=== PATIENT | female | born 1975 | race Hispanic/Latino ===

== ENCOUNTER 2021-10-26 23:22 | Inpatient (IN) | payer OTHER ==
[~2021-10-26] VITALS: Ht 168.9 cm; Wt 55.5 kg
[2021-10-26 23:49] VITALS: BP 154/98
--- NOTE | 2021-10-27 00:05 | ER.PDOC ---
General Chief Complaint: Suicide Attempt Stated Complaint: SI Time seen by MD: 23:50 Source: patient Exam Limitations: no limitations History of Present Illness Initial Comments Patient is a 45-year-old female with a past medical history of an unspecified autoimmune disease who comes in with her for suicidal ideation. Patient states that over the past week or so she has started having suicidal ideation and have made a plan to set her affairs in order and use her guns to shoot herself. Patient's does state that she does have access to guns at home. Patient states that she is voluntary and she does want help for this and has never sought help for anything like this before. Patient states that she is just really tired and she is sick and fighting against his autoimmune disease she states that interactions with friends at work are making her symptoms worse because she thinks that they are adult bullies and nothing seems to make it better anymore. Patient denies any other physical complaints or symptoms. Patient denies any homicidal ideation or AVH.Patient does endorse some associated mild anxiety along with depression. Past Medical History Medical History: thyroid disease Surgical History: hysterectomy, tonsillectomy Family History Significant Family History: no pertinent family hx Social History Smoking: non-smoker Alcohol Use: rarely Drug Use: none Reviewed Nursing Reviewed: Vital Signs, Abn. Noted, Nursing Assessment Review of Systems Constitutional: denies no symptoms reported, denies see HPI, denies chills, denies diaphoresis, denies fever, denies malaise, denies weakness, denies other EENTM: denies no symptoms reported, denies see HPI, denies eye pain, denies blurred vision, denies tearing, denies double vision, denies ear pain, denies ear discharge, denies nose pain, denies nose congestion, denies throat pain, denies throat swelling, denies mouth pain, denies mouth swelling, denies other Respiratory: denies no symptoms reported, denies see HPI, denies cough, denies orthopnea, denies shortness of breath, denies stridor, denies wheezing, denies o ther Cardiovascular: denies no symptoms reported, denies see HPI, denies chest pain, denies edema, denies palpitations, denies syncope, denies other Gastrointestinal: denies no symptoms reported, denies see HPI, denies abdominal pain, denies constipation, denies diarrhea, denies nausea, denies vomiting, denies other Genitourinary: denies no symptoms reported, denies see HPI, denies discharge, denies dysuria, denies frequency, denies hematuria, denies pain, denies other Musculoskeletal: denies no symptoms reported, denies see HPI, denies back pain, denies gout, denies joint pain, denies joint swelling, denies muscle pain, denies muscle stiffness, denies neck pain, denies other Skin: denies no symptoms reported, denies see HPI, denies change in color, denies change in hair/nails, denies dryness, denies lesions, denies lumps, denies rash, denies other Psychiatric/Neurological: anxiety, depressed, other Physical Exam General Appearance: Anxious EENT: No nystagmus, PERRLA, EOM's intact, NML ENT inspection, Pharynx nml, NML gag reflex Neck: Non-Tender, Full Range of Motion, Supple, Normal Inspection Respiratory: chest non-tender, lungs clear, normal breath sounds, no respiratory distress, no accessory muscle use Cardiovascular: Normal Peripheral Pulses, Regular Rate, Rhythm, No Edema, No Gallop, No JVD, No Murmur Gastrointestinal: Normal Bowel Sounds, No Organomegaly, No Pulsatile Mass, Non Tender, Soft Extremities: Non-Tender, Normal Range of Motion, No Evidence of Trauma, No Edema Neurological/Psychiatric: Anxious, Other (Very tearful on exam -suicidal ideation) Appearance/Memory/Insight: Appropriate Appearance Behavior/Eye Contact/Speech: Cooperative Thoughts/Hallucinations: No Apparent Hallucination Skin: Normal Color Results/Orders Results/Orders Orders - MORENITA RAMIREZ MD Cbc With Auto Diff (10/26/21 23:56) Comprehensive Metabolic Panel (10/26/21 23:56) Urinalysis (10/26/21 23:56) Thyroid Stimulating Horm(Ml) (10/26/21 23:56) Drug Scrn Med W Confirmation (10/26/21 23:56) Vitamin D Total 25 Hydroxy (10/26/21 23:56) RPR (10/26/21 23:56) Hemoglobin A1c(Ml) (10/26/21 23:56) Lipid Panel(Ml) (10/26/21 23:56) Creatine Kinase (10/26/21 23:56) Hcg Qualitative Serum (10/26/21 23:56) Alcohol(Ml) (10/26/21 23:56) Acetaminophen(Ml) (10/26/21 23:56) Salicylate(Ml) (10/26/21 23:56) Ekg-Routine (10/26/21 23:56) Covid19 Antigen Roxi Nikky (10/27/21 00:05) Free T4(Ml) (10/27/21 01:19) Vital Signs Date Time Temp Pulse Resp B/P (MAP) Pulse Ox O2 Delivery O2 Flow Rate FiO2 10/26/21 23:49 98.1 88 16 154/98 (116) 100 Room Air* 0 21 10/26/21 23:49 98.1 88 16 10/26/21 23:49 98.1 88 16 100 Laboratory Tests Test 10/27/21 00:12 10/27/21 01:20 White Blood Count 6.1 10^3/uL (4.5-11.0) Red Blood Count 5.03 10^6/uL (4.00-5.20) Hemoglobin 14.5 g/dL (12.0-15.0) Hematocrit 46.7 % (36.0-46.0) H Mean Corpuscular Volume 92.8 fL (78-100) Mean Corpuscular Hemoglobin 28.8 pg (26-34) Mean Corpuscular Hemoglobin Concent 31.0 g/dL (33-36.5) L Red Cell Distribution Width 13.1 % (11.5-14.5) Platelet Count 331 10^3/uL (150-400) Mean Platelet Volume 8.8 fL (7.8-11.0) Neutrophils (%) (Auto) 42.3 % (41.0-85.0) Lymphocytes (%) (Auto) 46.7 % (24.0-44.0) H Monocytes (%) (Auto) 8.5 % (5.0-12.0) Neutrophils # (Auto) 2.6 10^3/uL (1.8-7.7) Lymphocytes # (Auto) 2.86 10^3/uL1 (1.0-4.8) Monocytes # (Auto) 0.5 10^3/uL (0.3-0.8) Absolute Immature Granulocyte (auto 0.01 10^3 u/L (0-2) Absolute Eosinophils (auto) 0.1 10^3/uL (0.0-0.2) Immature Granulocytes % 0.20 % (0.00-0.50) Eosinophils % 1.3 % (0.0-5.0) Basophils % 1.0 % (0.0-0.2) H Basophils # 0.1 10^3/uL (0.0-0.1) Sodium Level 139 mmol/L (132-145) Potassium Level 3.5 mmol/L (3.6-5.2) L Chloride Level 102.0 mmol/L (96-109) Carbon Dioxide Level 26.5 mmol/L (20.0-32) Anion Gap 14.0 Blood Urea Nitrogen 14 mg/dL (7-18) Creatinine 1.01 mg/dL (0.59-1.40) Estimated GFR () 71.1 (>/=60) Est GFR (CKD-EPI)(Non-Afr Mongolian) 58.8 (>/=60) BUN/Creatinine Ratio 13.0 Glucose Level 115 mg/dL (70-110) H Hemoglobin A1c 5.3 % (0-5.7) Calcium Level 9.5 mg/dL (8.4-10.5) Total Bilirubin 0.5 mg/dL (0.2-1.0) Aspartate Amino Transferase (AST) 16 U/L (0-35) Alanine Aminotransferase (ALT) 22 U/L (12-78) Alkaline Phosphatase 100 U/L (50-136) Total Creatine Kinase 73 U/L (26-192) Total Protein 7.7 g/dL (6.4-8.2) Albumin 4.2 g/dL (3.4-5.0) Globulin 3.5 Albumin/Globulin Ratio 1.200 Triglycerides Level 66 mg/dL (20-170) Cholesterol Level 313 mg/dL (120-240) H LDL Cholesterol, Calculated 197.8 VLDL Cholesterol, Calculated 13.2 HDL Cholesterol 102 mg/dL (32-96) H Cholesterol Ratio (LDL/HDL) 1.9 Cholesterol/HDL Ratio 3.185001 Vitamin D 25-Hydroxy 63.7 ng/mL (30.0-100.0) Thyroid Stimulating Hormone (TSH) 6.352 mIU/mL (0.358-3.740) Free Thyroxine 1.38 ng/dL (0.76-1.46) Serum HCG, Qualitative NEGATIVE (NEGATIVE) Salicylates Level < 2.8 mg/dL (2.8-20.0) L Acetaminophen Level < 2 ug/mL (10-30) L Serum Alcohol < 3 mg/dL (0-50) Urine Collection Type RANDOM Urine Color YELLOW Urine Appearance CLEAR Urine Bilirubin NEGATIVE (NEGATIVE) Urine Ketones NEGATIVE (NEGATIVE) Urine Specific [place] 1.015 (1.005-1.030) Urine pH 5.5 (4.5-8.0) Urine Protein NEGATIVE (NEGATIVE) Urine Urobilinogen 0.2 E.U./dL (0.2) Urine Nitrate NEGATIVE (NEGATIVE) Urine Leukocyte Esterase NEGATIVE (NEGATIVE) Urine Glucose (Auto)(UA) NEGATIVE (NEGATIVE) Urine Blood NEGATIVE (NEGATIVE) Urine Opiates Screen NEGATIVE (c/o300ng/mL) Urine Methadone Screen NEGATIVE (c/o300ng/mL) Urine Barbiturates Screen NEGATIVE (c/o200ng/mL) Urine Phencyclidine Screen NEGATIVE (c/o 25ng/mL) Ur Amphetamine/Methamphetamine NEGATIVE (oy0840pb/mL) Urine MDMA Screen (Ecstasy) NEGATIVE (c/o300ng/mL) Urine Benzodiazepines Screen NEGATIVE (c/o200ng/mL) Urine Cocaine Metabolite Screen NEGATIVE (c/o300ng/mL) Ur Tetrahydrocannabinol (THC) Scrn NEGATIVE (c/o 50ng/mL) SARS-CoV-2 Antigen (Rapid) NEGATIVE (NEGATIVE) Progress Progress Patient here voluntarily seeking help for suicidal ideation. We will plan to medically clear place. Patient otherwise hemodynamically stable without medical issue. [id number] continues to endorse SI she is now medically clear and stable for psychiatric placement and transport. ER DEPART Departure Time of Disposition: 01:58 Disposition: 09 ADMITTED INPATIENT Impression: Primary Impression: Suicidal ideation Condition: Stable Referrals: KAYLA GILBERT MD (PCP) PRIMARY CARE PROVIDER Duration or Time Spent with Pa: 45 MORENITA RAMIREZ MD Oct 27, 2021 00:05
--- NOTE | 2021-10-27 00:10 | NUR ---
ADELA RN IN ROOM RYAN MANTILLA IN ROOM FOR ASSESSMENT
[2021-10-27 00:22] LABS: BASOPHIL # 0.1 10^3/uL (0.0-0.1); EOSINOPHIL # 0.1 10^3/uL (0.0-0.2); EOSINOPHIL % 1.3 % (0.0-5.0); LYMPHOCYTES # 2.86 10^3/uL1 (1.0-4.8); LYMPHOCYTES % 46.7 % (24.0-44.0); MEAN CORP HGB 28.8 pg (26-34); MONOCYTES # 0.5 10^3/uL (0.3-0.8); MONOCYTES % 8.5 % (5.0-12.0); NEUTROPHIL # 2.6 10^3/uL (1.8-7.7); NEUTROPHILS % 42.3 % (41.0-85.0); PLATELET COUNT 331 10^3/uL (150-400); RED CELL DISTRIBUTION WIDTH 13.1 % (11.5-14.5)
[2021-10-27 01:06] LABS: CARBON DIOXIDE 26.5 mmol/L (20.0-32); GLUCOSE 115 mg/dL (70-110)
--- NOTE | 2021-10-27 01:23 | NUR ---
EVAL 00:08 TO 01:15 TO ROOM 8 IN E.D. AT [facility] FOR EVAL. 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 PATIENTS SPOUSE WITH HER, PATIENT VOICES SHE DOES NEED HELP AND AGREES TO BE ADMITTED VOLUNTARY. PATIENT CURRENTLY LIVES IN [facility]. VOICES SHE HAS LOST 5 TO 10 POUNDS IN LAST 3 MONTHS, POOR APPETITE. PATIENT WAS DIAGNOSED WITH INA DISEASE 7 YEARS AGO AND STATES THE DISEASE HAS CHANGED HER LIFE AND SHE IS JUST DONE, REPORTS SHE HAS CHRONIC PAIN FROM DX, IS NO LONGER ABLE TO WORK OUT SHE IS TOO TIRED. PATIENT REPORTS SHE DOES NOT FEEL SUICIDE IS WRONG. 01:23. CONTACTED DIANA PEREZ EMPLOYER RELATIONS REPRESENTATIVE, OK TO ADMIT PATIENT TO [facility] VOLUNTARY FOR S/I AND MDD. REVIEWED HIGH RISK FOR SUICIE, OK TO PLACE ON DIRECT LINE OF SIGHT. PATIENT WILL BE ACROSS FROM NURSING STATION.
--- NOTE | 2021-10-27 01:25 | NUR ---
OBSERVATION REVIEWED WITH DIANA PEREZ IN STORE [employer] PATIENTS SUICIDAL RISK HIGH. ORDER FOR DIRECT LINE OF SIGHT WAS RECEIVED, PATIENT WILL BE ACROSS FROM NURSING STATION.
[2021-10-27 01:49] LABS: BILIRUBIN,URINE NEGATIVE (NEGATIVE); UROBILINOGEN,URINE 0.2 E.U./dL (0.2)
--- NOTE | 2021-10-27 02:01 | NUR ---
Pt accepted in the [facility] for Dr. Mcginnis. Pt notified and will be taken up stairs by [facility] staff. Report given to RYAN Dickinson.
[2021-10-27] MEDS ORDERED: CYMBALTA PO SCH ×2 (02:50→21:00)
--- NOTE | 2021-10-27 02:50 | NUR ---
ARRIVAL TO UNIT PATIENT ARRIVED ON UNIT AMBULATORY PER HER CHOICE ACCOMPANIED BY SPOUSE AND SHASHI NUNEZ. NO DISTRESS NOTED.
[2021-10-27 03:00] VITALS: BP 133/87
[2021-10-27] MEDS ORDERED: CYMBALTA PO ONE (04:00)
--- NOTE | 2021-10-27 05:42 | NUR ---
ADMIT 45 YEAR OLD FEMALE ADMITTED TO [facility] FOR S/I WITH PLAN AND MDD. VOLUNTARY ADMIT STATUS. PATIENT TEARFUL, SUICIDAL IDEATION WITH PLAN TO GO TO [place] TODAY, GET HER WILL IN ORDER, COME HOME AND GO WHERE NO ONE WOULD BE ABLE TO FND HER EASILY AND SHOOT HERSELF. 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 STATES SHE CAN NOT KEEP UP WITH TEACHING AND HER CLASSES, IT IS TOO TIRING. PATIENTS SPOUSE WITH HER ON ADMIT, PATIENT CURRENTLY LIVES IN [facility]. VOICES SHE HAS LOST 5 TO 10 POUNDS IN LAST 3 MONTHS, POOR APPETITE. PATIENT WAS DIAGNOSED WITH INA DISEASE 7 YEARS AGO AND STATES THE DISEASE HAS CHANGED HER LIFE , SHE IS NOT THE SAME AND HER FAMILY AND FRIENDS REMIND HER OF THAT AND SHE IS "JUST DONE", REPORTS SHE HAS CHRONIC PAIN FROM DX, IS NO LONGER ABLE TO WORK OUT SHE IS TOO TIRED. PATIENT REPORTS SHE DOES NOT FEEL SUICIDE IS WRONG. MEDICAL DX, THYROID DISORDER, INA DISEASE. DISCHARGE PLAN IS TO RETURN HOME TO [place] WITH SPOUSE.
[2021-10-27 08:16] VITALS: BP 114/86
--- NOTE | 2021-10-27 08:22 | PCM.EKG ---
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
--- NOTE | 2021-10-27 10:23 | NUR ---
TELEMED PATIENT WAS SEEN BY DR. FAJARDO VIA TELEMED. RECEIVED ORDERS TO START WELLBUTRIN XL AND PRN ATARAX, PATIENT AGREEABLE WITH PLAN, SEE EMR FOR DOSING. Addendum: 10/27/21 at 1216 by Bety Perez RN - ADELA DAVIS RECEIVED ORDERS TO START FIRST DOSE OF WELLBUTRIN XL NOW.
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
[2021-10-27] MEDS ORDERED: ATARAX PO PRN (11:00)
--- NOTE | 2021-10-27 11:48 | NUR ---
OBSERVATION RECEIVED ORDERS FROM DR. FAJARDO TO DISCONTINUE DIRECT LINE OF SIGHT OBS, AND RESUME Q15 MIN MONITORING.
--- NOTE | 2021-10-27 12:11 | NUR ---
DR. SHEIKH DR. SALDANA NOTIFIED OF PATIENT BEING ON UNIT AND NEED FOR MED REC. NO NEW ORDERS RECEIVED AT THIS TIME.
[2021-10-27] MEDS: WELLBUTRIN XL PO SCH (12:14)
--- NOTE | 2021-10-27 14:40 | NUR ---
DR. SHEIKH DR. SALDANA AT BEDSIDE TO ASSESS PATIENT. RECEIVED VERBAL ORDERS TO HOLD HOME LEVOTHYROXINE AT THIS TIME D/T PATIENT TAKING MEDICATION QSUNDAY.
--- NOTE | 2021-10-27 15:46 | PCM.HP ---
History of Present Illness Reason for Visit: Suicidal ideation History of Present Illness This 45-year-old female was admitted to U unit for suicidal ideation with a plan. She wanted to kill herself with a gun. She has history of Leona's disease and at present she is on levothyroxine pills. She stated that she takes 8 pills of 75 microgram levothyroxine once a week and she took them yesterday. Denies any history of coronary artery disease/CVA /diabetes/hypertension/hyperlipidemia. Karin does not have any past history of cancer. Denies any medical complaint today. Past Medical History Endocrine: Other (Leona thyroiditis) Past Surgical History: Tonsillectomy, Other ( partial hysterectomy) Past Social History Smoke: No Alcohol: none Drugs: None Lives: with Family Travel Hx EBOLA RISK:Travel to/contact w: No Is pt experiencing any Ebola s: No Review of Systems Neurological: Other ( admitted to U unit for suicidal ideation and has a history of anxiety and depression) Allergies: Coded Allergies: Penicillins (Unverified Allergy, Unknown, ITCHING, 10/27/21) Sulfa (Sulfonamide Antibiotics) (Unverified Allergy, Unknown, Rash, 10/27/21) VTE VTE Risk Total Score: 4 VTE Risk Score VTE Risk: Score 0-1 = Low Risk (Aggressive mobilization; early ambulation; no VTE prophylaxis required) Score 2: Moderate Risk (Intermittent/Pneumatic Compression Device OR Lovenox/Heparin/Coumadin) Score 3-4: High Risk (Intermittent/Pneumatic Compression Device AND Lovenox/Heparin/Coumadin) Score > or =5: Highest Risk (Intermittent/Pneumatic Compression Device AND Lovenox/Heparin/Coumadin) Antico:Hep/LMWH/Coum/Xarelto: No Mechanical device ordered: No VTE VTE Present on Admission: No Currently receiving anticoagul: No VTE Risk Total Score: 4 Exam Vital Signs Vital Signs Date Time Temp Pulse Resp B/P (MAP) Pulse Ox O2 Delivery O2 Flow Rate FiO2 10/27/21 08:16 98.3 111 16 0 10/27/21 04:00 Room Air 10/27/21 03:00 133/87 (102) 0 21 General Appearance: Alert, Oriented X3, Cooperative, No acute distress HEENT: Atraumatic, PERRLA, EOMI, Mucous membr. moist/pink Respiratory: Clear to auscultation Cardiovascular: Normal S1, Normal S2 Abdominal: Normal bowel sounds, Soft Extremities: No clubbing, No cyanosis, No edema Neuro: Normal gait, Normal speech, Strength at 5/5 X4 ext, Normal tone Psych/Mental Status: Mental status NL Assessment/Plan Assessment/Plan Assessment/Plan 45 yo F, hx of depression, admitted to [facility] for worsening mood and SI with plan in the context of medical issues and psychosocial stressors. Assessment: MDD, rec, severe w/o psychotic features- Managed by [facility] providers # History of Leona thyroiditis- she took 8 pills of 75 mcg levothyroxine yesterday and she is good for about a week. # Mild hypokalemia of 3.4- potassium chloride 20 M EQ p.o. daily for 3 days. can repeat CMP after that. Patient History: FH: pancreatic cancer DAUGHTER SHEIKHGUIDO Arellano MD Oct 27, 2021 15:46
--- NOTE | 2021-10-27 17:00 | NUR ---
PIRP P: DTS, ALTERATION IN MOOD, ALTERED NUTRITION I: ASSESS REASONS FOR DEPRESSION/ANXIETY, MONITOR FOR CHANGES IN USUAL BEHAVIOR, Q15 MIN MONITORING, PROVIDE 1:1 TO ENCOURAGE EXPRESSION OF FEELINGS, PROVIDE SAFE AND SUPPORTIVE ENVIRONMENT, ALTERNATE REST/ACTIVITY, PROVIDE TASK-ORIENTED ACTIVITIES, PROVIDE MEDICATION EDUCATION, GIVE MEDICATIONS ORDERED, MONITOR INTAKE AND OUTPUT, PROVIDE EDUCATION REGARDING ADEQUATE PO FOOD/FLUID INTAKE, USE CALM REASSURING APPROACH R: PATIENT HAS ISOLATED TO ROOM MAJORITY OF SHIFT, HAS COME OUT TO DAY ROOM FOR MEALS AND x1 GROUP ACTIVITY. AFFECT REMAINS FLAT, BECOMES TEARFUL AT TIMES WHEN TALKING ABOUT REASONS FOR ADMISSION. RATES DEPRESSION 11/08, ANXIETY 06/08, VOICES HAVING INTRUSIVE THOUGHTS OF NOT WANTING TO BE ALIVE ANYMORE, BUT DENIES CURRENT SI WITH PLAN OR INTENT. PATIENT HAS VOICED FEELING OVERWHELMED AND "UNABLE TO FUNCTION." REPORTS HAVING DECREASED APPETITE, MOTIVATION, AND INABILITY TO CONCENTRATE. REPORTS SHE HAS NOT PARTICIPATED IN ACTIVITIES SHE ENJOYS, MOSTLY SLEEPS "TO NOT DEAL WITH ANYTHING OR THINK ABOUT BEING IN PAIN." PATIENT DENIES AVH, NO DELUSIONS NOTED, DENIES HI. PATIENT HAS TAKEN MEDICATIONS ORDERED AND HAS INITIATED PARTICIPATION IN OWN SELF-CARE. P: PATIENT STARTED ON WELLBUTRIN XL
[2021-10-27 19:55] VITALS: BP 126/77
[2021-10-27] MEDS: CYMBALTA PO SCH (20:09)
[2021-10-27] MEDS ORDERED: CYMBALTA ONE (20:09)
[2021-10-27] MEDS ORDERED: TYLENOL ONE (20:12)
[2021-10-27] MEDS: TYLENOL PO PRN (20:35)
--- NOTE | 2021-10-27 20:35 | NUR ---
PRN TYLENOL ADMINISTRATION PATIENT C/O HEADACHE. PATIENT RATES PAIN 6/10. MEDICATION ADMINISTERED.
--- NOTE | 2021-10-27 22:36 | NUR ---
PRN TYLENOL FOLLOW UP MEDICATION EFFECTIVE.
[2021-10-27] MEDS ORDERED: DESYREL ONE (23:40)
[2021-10-27] MEDS: DESYREL PO PRN (23:40)
--- NOTE | 2021-10-27 23:40 | NUR ---
PRN TRAZODONE ADMINISTRATION PATIENT C/O NOT BEING ABLE TO SLEEP. PRN TRAZODONE ADMINISTERED BY JOSE RAFAEL GILBERT RN.
--- NOTE | 2021-10-28 00:30 | NUR ---
PRN TRAZODONE FOLLOW UP MEDICATION EFFECTIVE.
--- NOTE | 2021-10-28 06:30 | NUR ---
P.I.R.P. P. DANGER TO SELF, ALTERATION IN MOOD I. PROVIDE EVERY 15 MINUTE CHECKS WITH DOCUMENTATION, PROVIDE MEDICATIONS AND EDUCATION ON MEDS ORDERED PER MD, PROVIDE TASK ORIENTED GROUP ACTIVITIES AND ENCOURAGE PARTICIPATION, PROVIDE 1:1 INTERVENTION TO ALLOW PATIENT TO EXPRESS FEELINGS AND CONCERNS, MONITOR FOR STRESSOR AND MOOD CHANGES. R. PATIENT TOOK MEDICATIONS ORDERED, DID REQUIRE PRN TRAZODONE FOR SLEEP, EFFECTIVE. ATTENDED GROUP ACTIVITY, PLEASANT. DENIED S/I. P. CONTINUE CURRENT PLAN OF CARE.
[2021-10-28 07:46] VITALS: BP 115/65
--- NOTE | 2021-10-28 07:58 | NUR ---
TELEMED PATIENT WAS SEEN BY Sailaja GOMEZ APRN VIA TELEMEDICINE. NO NEW ORDERS RECEIVED AT THIS TIME.
--- NOTE | 2021-10-28 08:12 | PRM.PN ---
Mood: "so so, better than yesterday" Sleep: 6 hours last night Appetite: Fair but has food restriction due to Leona's Suidical thoughts: Denies Homicidal thoughts: Denies Recent stressors: Wanting to go home Family support: is supportive, visited yesterday Aggressive Behavior: None reported Ability to Perform ADL'sc: Good Psychotic sympstoms: Denies, No evidence of hallucinations, delusions, or paranoia Manic Symptoms: No symptoms observed Living situation: Lives with and kids Illicit Drug usec: Denies Anxity Symptoms: Moderate anxiety Anger/Irritablility: Some irritability Muscle Strength & Tone: WNL Gait & Station: Normal stance/post/gait Appearance: Well groomed/hygience Mood & Affect: Euthymic/appr/congruent Orientation: Fully oriented per interv Attention/Concentration: Good attention, Good concentration Speech: Reg rate/vol/rhyth/prosod Judgement/Insight: Good judgement, Fair insight Thought Process: Linear/goal directed Language: Dutch Thought content/Abnormal/Psych: None/normal Fund of Knowledge: WNL Associations: WNL/Normal Associations Memory (recent and remote): Gross int/not form assess Constitutional: None Neurological: None Psychiatric: Depressed, Anxious Anchor I: MDD rec severe w/o psychotic features Assessment/Plan Assessment/Plan Assessment/Plan 45 yo F, hx of depression, admitted to [facility] for worsening mood and SI with plan in the context of medical issues and psychosocial stressors. Assessment: MDD, rec, severe w/o psychotic features- Managed by [facility] providers # History of Leona thyroiditis- she took 8 pills of 75 mcg levothyroxine yesterday and she is good for about a week. # Mild hypokalemia of 3.4- potassium chloride 20 M EQ p.o. daily for 3 days. can repeat CMP after that. 45 yo F, hx of depression, admitted to [facility] for worsening mood and SI with plan in the context of medical issues and psychosocial stressors. Patient's presentation is likely impacted by her Leona's, but we discussed possible treatment options for her depression. Reviewed R/B/BSEs of medications. PVU, agrees with plan. Anchor I: MDD, rec, severe w/o psychotic features Plan: 1) Medications: -continue Cymbalta 90mg PO QHS for mood/pain -continue Trazodone 50mg PO QHS PRN sleep -start WellbutrinXL 150mg PO QAM for mood -start Vistaril 25mg PO Q6hrs PRN anxiety 2) Continue behavioral management 3) Appreciate hospitalist assistance with medical issues 10/28/21: The patient was seen by JENNIFER Sheridan face to face via televideo conference for a f/u psychiatric evaluation at [facility] unit. As per nursing, patient did fair during day time yesterday and last night. She participated in groups but keeping limited interaction with peers. Patient's visited her yesterday. Caity is attending to ADLs, she took a shower yesterday, patient has a tendency to pay less attention to personal hygiene when she goes through depressive episode. She is eating fair, she said she doesn't like the food over here, she has a lot of food restriction due to Leona's. Nursing will provide educational resource for Leona's diet. Patient slept for 6.25 hours last night after taking Trazodone. Caity was pleasant and cooperative during the assessment. She said she was tearful yesterday because she really wanted to go home. She reports feeling a little bit better today. Patient received the first dose of Wellbutrin yesterday. She mentioned of having mild itching on both arms and headache. She refused to take PRN Vistaril when offered. Patient said she will monitor herself and see if its from Wellbutrin. Advised to take Tylenol for headache. If headache persists or getting worse with further administration of Wellbutrin will make necessary med adjustment. Patient rated her depression 2/10 and anxiety 1/10 today. Motivation and energy are still on lower side. She denies SI, HI, and AV hallucinations. No med changes today. Will continue f/u on p atient's mood and mediation tolerance. Anchor I: MDD, rec, severe w/o psychotic features Plan: 1) Medications: -continue Cymbalta 90mg PO QHS for mood/pain -continue Trazodone 50mg PO QHS PRN sleep -Continue WellbutrinXL 150mg PO QAM for mood. (Will consider switching to different antidepressant in case of side effects; headache and itching are persisting ). -Continue Vistaril 25mg PO Q6hrs PRN anxiety 2) Continue behavioral management 3) Appreciate hospitalist assistance with medical issues Vital Signs Date Time Temp Pulse Resp B/P (MAP) Pulse Ox O2 Delivery O2 Flow Rate FiO2 10/28/21 19:43 98.4 75 18 98 Room Air 0.00 Current Medications Medications (Trade) Dose Ordered Sig/Esthela PRN Reason Start Time Stop Time Status Last Admin Acetaminophen (Tylenol) 650 mg Q6H PRN PAIN 4-8 10/27/21 20:10 11/27/21 00:00 10/28/21 19:36 Acetaminophen/ Butalbital/ Caffeine (Fioricet) 2 each Q6 PRN MIGRAINE PAIN 10/28/21 21:00 11/27/21 20:59 Bupropion HCl (Wellbutrin Xl) 150 mg DAILY 10/28/21 09:00 11/27/21 08:59 10/28/21 08:56 Duloxetine HCl (Cymbalta) 90 mg HS 10/27/21 21:00 11/26/21 20:59 10/28/21 20:42 Hydroxyzine HCl (Atarax) 25 mg Q6HR PRN anxiety 10/27/21 11:00 11/26/21 10:59 Potassium Chloride (Klor-Con 10) 20 meq DAILY 10/28/21 09:00 10/31/21 11:00 10/28/21 08:56 Trazodone HCl (Desyrel) 50 mg HS PRN SLEEP 10/27/21 05:00 11/27/21 00:00 10/28/21 20:42 Patient History: FH: pancreatic cancer DAUGHTER NIRMALA GOMEZ GUIDANCE SERVICES COORDINATOR Oct 28, 2021 08:12
[2021-10-28] MEDS ORDERED: WELLBUTRIN XL PO ONE (08:49)
[2021-10-28] MEDS ORDERED: KLOR-CON 10 PO ONE (08:54)
[2021-10-28] MEDS: WELLBUTRIN XL PO SCH (08:56)
[2021-10-28] MEDS: KLOR-CON 10 PO SCH (08:56)
[2021-10-28] MEDS: TYLENOL PO PRN ×2 (09:15→19:36)
[2021-10-28] MEDS ORDERED: TYLENOL ONE ×2 (09:15→19:36)
--- NOTE | 2021-10-28 15:06 | NUR ---
SW ASSESSMENTS: SW ATTEMPTED TO COMPLETE SW ASSESSMENTS AT THIS TIME BUT PT DID NOT WANT TO AT THIS TIME BECAUSE SHE HAD A HEADACHE AND WANTED TO REST. PT IS VOLUNTARY AND SW WILL RE-ATTEMPT AT A LATER TIME.
--- NOTE | 2021-10-28 17:15 | NUR ---
PIRP P: ALTERATION IN MOOD, ALTERED NUTRITION I: ASSESS REASONS FOR DEPRESSION/ANXIETY, MONITOR FOR CHANGES IN USUAL BEHAVIOR, Q15 MIN MONITORING, PROVIDE 1:1 TO ENCOURAGE EXPRESSION OF FEELINGS, PROVIDE SAFE AND SUPPORTIVE ENVIRONMENT, ALTERNATE REST/ACTIVITY, PROVIDE TASK-ORIENTED ACTIVITIES, PROVIDE MEDICATION EDUCATION, GIVE MEDICATIONS ORDERED, MONITOR INTAKE AND OUTPUT, REINFORCE EDUCATION REGARDING ADEQUATE PO FOOD/FLUID INTAKE R: PATIENT HAS ISOLATED TO ROOM FOR MAJORITY OF SHIFT, HAS COME OUT TO DAY ROOM FOR x1 GROUP ACTIVITY. WILL COME OUT TO DAY ROOM FOR MEALS, BUT HAS HAD POOR FOOD/FLUID INTAKE. PATIENT DENIES APPETITE IS THE ISSUE, REPORTS SHE "JUST DOESN'T REALLY LIKE THE FOOD." PATIENT HAS BEEN OFFERED PROTEIN/SUPPLEMENT SHAKES BUT HAS DENIED. RATES DEPRESSION 2/, ANXIETY /, AND HAS DENIED SI THIS SHIFT. DOES NOT APPEAR TO RESPOND TO INTERNAL STIMULI, NO DELUSIONS NOTED. CONTINUES TO REPORT FATIGUE, ANHEDONIA, POOR MOTIVATION, AND HAS REQUESTED TO REST D/T HEADACHE. PATIENT HAS REQUIRED ADMIN OF PRN TYLENOL FOR HEADACHE THROUGHOUT SHIFT. P: ENCOURAGE GROUP PARTICIPATION, ALTERNATE REST/ACTIVITY, REINFORCE IMPORTANCE OF NUTRITIONAL INTAKE
--- NOTE | 2021-10-28 19:36 | NUR ---
PRN TYLENOL ADMINISTRATION PATIENT C/O HEADACHE. PATIENT RATES PAIN 8/10. TYLENOL 650MG ADMINISTERED.
[2021-10-28 19:43] VITALS: BP 113/71
--- NOTE | 2021-10-28 20:15 | NUR ---
TYLENOL ADMINISTRATION FOLLOW UP MEDICATION EFFECTIVE.
[2021-10-28] MEDS ORDERED: DESYREL ONE (20:41)
[2021-10-28] MEDS: DESYREL PO PRN (20:42)
[2021-10-28] MEDS ORDERED: CYMBALTA ONE (20:42)
[2021-10-28] MEDS: CYMBALTA PO SCH (20:42)
--- NOTE | 2021-10-28 20:42 | NUR ---
PRN TRAZODONE ADMINISTRATION\ MEDICATION ADMINISTERED AID IN SLEEP.
--- NOTE | 2021-10-28 20:56 | NUR ---
[facility] PATIENT HAS HAD MIGRAINE HEADACHE SINCE YESTERDAY EVENING. PATIENT HAS TAKEN TYLENOL WITH NO RELIEF. CALLED [facility]BER [facility]ER ON-CALL AND NOTIFIED HIM OF PATIENT'S MIGRAINE. NEW ORDERS RECEIVED FOR FIORICET 2 TABS Q6H PRN FOR MIGRAINES AND COMPAZINE 10MG IM ONE TIME.
[2021-10-28] MEDS ORDERED: FIORICET PO PRN (21:00)
[2021-10-28] MEDS ORDERED: COMPAZINE IM ONE (21:00)
--- NOTE | 2021-10-28 22:53 | NUR ---
TRAZODONE ADMINISTRATION FOLLOW UP MEDICATION EFFECTIVE.
--- NOTE | 2021-10-29 04:20 | NUR ---
PIRP P: ALTERATION IN MOOD, ALTERED NUTRITION I: ASSESS REASONS FOR DEPRESSION/ANXIETY, MONITOR FOR CHANGES IN USUAL BEHAVIOR, Q15 MIN MONITORING, PROVIDE 1:1 TO ENCOURAGE EXPRESSION OF FEELINGS, PROVIDE SAFE AND SUPPORTIVE ENVIRONMENT, ALTERNATE REST/ACTIVITY, PROVIDE TASK-ORIENTED ACTIVITIES, PROVIDE MEDICATION EDUCATION, GIVE MEDICATIONS ORDERED, MONITOR INTAKE AND OUTPUT, REINFORCE EDUCATION REGARDING ADEQUATE PO FOOD/FLUID INTAKE R: PATIENT HAS FLAT AFFECT. PATIENT STATES SHE HAS HAD A HEADACHE SINCE YESTERDAY EVENING SO SHE HAS SPENT THE EVENING IN HER ROOM WITH THE LIGHTS OUT. PATIENT STATES SHE DOES GET MIGRAINES OCCASIONALLY. PATIENT IS COOPERATIVE AND PLEASANT. TAKES ALL MEDICATION PRESCRIBED. DENIES ANXIETY AND DEPRESSION. DENIES HALLUCINATIONS, S/I AND H/I. NO DELUSIONS NOTED. P: CONTINUE TO MONITORING EFFECTIVENESS OF MEDICATION
[2021-10-29 09:06] VITALS: BP 106/68
[2021-10-29] MEDS ORDERED: WELLBUTRIN XL PO ONE (09:21)
[2021-10-29] MEDS: KLOR-CON 10 PO SCH (09:22)
[2021-10-29] MEDS ORDERED: KLOR-CON 10 PO ONE (09:22)
[2021-10-29] MEDS: WELLBUTRIN XL PO SCH (09:22)
[2021-10-29] MEDS ORDERED: FIORINAL PO PRN (15:00)
--- NOTE | 2021-10-29 16:06 | PRM.PN ---
Mood: so much better, not sufferring with a migraine, not laying in bed Sleep: 7.75 hours Manic Symptoms: can be hyper and silly, feel good, twice a week Family,PT,Surgical,&Current HX: (1) Suicidal ideation (2) MDD (major depressive disorder), recurrent severe, without psychosis Muscle Strength & Tone: WNL Gait & Station: Normal stance/post/gait Appearance: Well groomed/hygience Mood & Affect: Full Orientation: Fully oriented per interv Attention/Concentration: Fair attention, Fair concentration Speech: hyperverbal Judgement/Insight: Fair judgement, Fair insight Thought Process: Circumferential Language: German Thought content/Abnormal/Psych: None/normal Fund of Knowledge: WNL Associations: Other Constitutional: None Neurological: None Psychiatric: Anxious (more hypomanic, appearing overloaded with thoughts, want ing to speak) Assessment/Plan Assessment/Plan Assessment/Plan 45 yo F, hx of depression, admitted to [facility] for worsening mood and SI with plan in the context of medical issues and psychosocial stressors. Assessment: MDD, rec, severe w/o psychotic features- Managed by [facility] providers # History of Leona thyroiditis- she took 8 pills of 75 mcg levothyroxine yesterday and she is good for about a week. # Mild hypokalemia of 3.4- potassium chloride 20 M EQ p.o. daily for 3 days. can repeat CMP after that. 45 yo F, hx of depression, admitted to [facility] for worsening mood and SI with plan in the context of medical issues and psychosocial stressors. Patient's presentation is likely impacted by her Leona's, but we discussed possible treatment options for her depression. Reviewed R/B/BSEs of medications. PVU, agrees with plan. [place] I: MDD, rec, severe w/o psychotic features Plan: 1) Medications: -continue Cymbalta 90mg PO QHS for mood/pain -continue Trazodone 50mg PO QHS PRN sleep -start WellbutrinXL 150mg PO QAM for mood -start Vistaril 25mg PO Q6hrs PRN anxiety 2) Continue behavioral management 3) Appreciate hospitalist assistance with medical issues 10/28/21: The patient was seen by JENNIFER Sheridan face to face via televideo conference for a f/u psychiatric evaluation at [facility] unit. As per nursing, patient did fair during day time yesterday and last night. She participated in groups but keeping limited interaction with peers. Patient's visited her yesterday. Caity is attending to ADLs, she took a shower yesterday, patient has a tendency to pay less attention to personal hygiene when she goes through depressive episode. She is eating fair, she said she doesn't like the food over here, she has a lot of food restriction due to Leona's. Nursing will provide educational resource for Leona's diet. Patient slept for 6.25 hours last night after taking Trazodone. Caity was pleasant and cooperative during the assessment. She said she was tearful yesterday because she really wanted to go home. She reports feeling a little bit better today. Patient received the first dose of Wellbutrin yesterday. She mentioned of having mild itching on both arms and headache. She refused to take PRN Vistaril when offered. Patient said she will monitor herself and see if its from Wellbutrin. Advised to take Tylenol for headache. If headache persists or getting worse with further administration of Wellbutrin will make necessary med adjustment. Patient rated her depression 2/10 and anxiety 1/10 today. Motivation and energy are still on lower side. She denies SI, HI, and AV hallucinations. No med changes today. Will continue f/u on patient's mood and mediation tolerance. [place] I: MDD, rec, severe w/o psychotic features Plan: 1) Medications: -continue Cymbalta 90mg PO QHS for mood/pain -continue Trazodone 50mg PO QHS PRN sleep -Continue WellbutrinXL 150mg PO QAM for mood. (Will consider switching to different antidepressant in case of side effects; headache and itching are persisting ). -Continue Vistaril 25mg PO Q6hrs PRN anxiety 2) Continue behavioral management 3) Appreciate hospitalist assistance with medical issues Vital Signs Date Time Temp Pulse Resp B/P (MAP) Pulse Ox O2 Delivery O2 Flow Rate FiO2 10/28/21 19:43 98.4 75 18 98 Room Air 0.00 Current Medications Medications (Trade) Dose Ordered Sig/Esthela PRN Reason Start Time Stop Time Status Last Admin Acetaminophen (Tylenol) 650 mg Q6H PRN PAIN 4-8 10/27/21 20:10 11/27/21 00:00 10/28/21 19:36 Acetaminophen/ Butalbital/ Caffeine (Fioricet) 2 each Q6 PRN MIGRAINE PAIN 10/28/21 21:00 11/27/21 20:59 Bupropion HCl (Wellbutrin Xl) 150 mg DAILY 10/28/21 09:00 11/27/21 08:59 10/28/21 08:56 Duloxetine HCl (Cymbalta) 90 mg HS 10/27/21 21:00 11/26/21 20:59 10/28/21 20:42 Hydroxyzine HCl (Atarax) 25 mg Q6HR PRN anxiety 10/27/21 11:00 11/26/21 10:59 Potassium Chloride (Klor-Con 10) 20 meq DAILY 10/28/21 09:00 10/31/21 11:00 10/28/21 08:56 Trazodone HCl (Desyrel) 50 mg HS PRN SLEEP 10/27/21 05:00 11/27/21 00:00 10/28/21 20:42 Vital Signs Date Time Temp Pulse Resp B/P (MAP) Pulse Ox O2 Delivery O2 Flow Rate FiO2 10/29/21 09:06 98.3 87 18 98 Room Air 0.00 10/29/21 Nursing report: slept 7.75 hours rated depression a 1, denies si, rated anxiety a zero participated in group, out of her room all day after nursing encouragement she reports feeling better, she had previously avoided eye contact able to participate in games and laugh her plans to visit tonight itchiness? not present she reports, she will suddenly change things, like her house, put it up for sale, quit her job, stopped her masters work Patient: situation change me last time depressed, told me resign form my job, stay with my mom, I stayed there 7 months, face was glowing, then we moved down there, I did not follow up through suicide, I figured I just need to go someplace to get me figured up I don't know my real dad, admits this time was real I am very disorganized, Summary: mild hypomania, smily, appears to have gained great energy today, affect mildly in congruent, talking but looking opposite direction, talks of suicidal thought and no sad affect [place] I: MDD, rec, severe w/o psychotic features SI rule out bipolar, starting to hear of cycles in her mood, Plan: 1) Medications: -continue Cymbalta 90mg PO QHS for mood/pain -continue Trazodone 50mg PO QHS PRN sleep -Continue WellbutrinXL 150mg PO QAM for mood. (Will consider switching to different antidepressant in case of side effects; headache and itching are persisting ). -Continue Vistaril 25mg PO Q6hrs PRN anxiety ADD Abilify 2mg po daily; discussed target dose more likely 10mg daily for mood stabilizer, if no akathisia tonight; likely to increase tomorrow. discussed benefits and side effects 2) Continue behavioral management 3) Appreciate hospitalist assistance with medical issues Patient History: FH: pancreatic cancer DAUGHTER RAJAT PEREZ JOÃO Oct 29, 2021 16:06
--- NOTE | 2021-10-29 16:14 | NUR ---
GMAS: PLEASE SEE PT'S CHART FOR FULL ASSESSMENT. Addendum: 10/31/21 at 1626 by Tamiko Zamora LMSW SW Amended: Links added.
--- NOTE | 2021-10-29 16:18 | NUR ---
MMSE: PLEASE SEE PT'S CHART FOR FULL ASSESSMENT. Addendum: 10/31/21 at 1626 by Tamiko Zamora LMSW SW Amended: Links added.
--- NOTE | 2021-10-29 16:19 | NUR ---
BIOPSYCHOSOCIAL: PLEASE SEE PT'S CHART FOR FULL ASSESSMENT. Addendum: 10/31/21 at 1626 by Tamiko Zamora LMSW SW Amended: Links added.
--- NOTE | 2021-10-29 16:45 | NUR ---
TELEMED PT SEEN BY DIANA PEREZ FIRST [employer]AT SANDER VIA TELEMED, NEW ORDERS RECEIVED TO START ABILIFY. PT AGREEABLE TO PLAN AT THIS TIME. SEE EMR.
[2021-10-29] MEDS ORDERED: ABILIFY PO SCH (17:00)
--- NOTE | 2021-10-29 17:44 | NUR ---
PIRP P: DTS, ALTERATION IN MOOD, NUTRITION ALTERED I: Q 15 MIN MONITORING. PROVIDE SAFE AND SUPPORTIVE ENVIRONMENT. OBSERVE AND REPORT CHANGED IN BEHAVIOR. ENCOURAGE GROUP PARTICIPATION. ENCOURAGE OWN SELF CARE. PROVIDE MEDICATION ORDERED BY PHYSICIAN. PROVIDE MEDICATION EDUCATION. PROVIDE 1:1 TO ALLOW PT TO EXPRESS FEELINGS. MONITOR AND RECORD PERCENTAGE OF MEALS EATEN. R: PT HAS BEEN COOPERATIVE THROUGHOUT SHIFT. PT RATED DEPRESSION 1/10 AND DENIED ANXIETY. PT DENIED SI/HI. NO HALLUCINATIONS OR DELUSIONS NOTED THROUGHOUT SHIFT. PT PARTICIPATED IN OWN SELF CARE. PT PARTICIPATED IN GROUP ACTIVITY WITH MINIMAL PROMPTING. PT TOOK ALL MEDICATION ORDERED BY PHYSICIAN. PT INITIATED INTERACTION WITH STAFF. P: PT STARTED ON ABILIFY.
[2021-10-29 19:37] VITALS: BP 123/64
[2021-10-29] MEDS ORDERED: CYMBALTA ONE (20:55)
[2021-10-29] MEDS ORDERED: DESYREL ONE (20:55)
[2021-10-29] MEDS: CYMBALTA PO SCH (20:56)
[2021-10-29] MEDS: DESYREL PO PRN (20:56)
--- NOTE | 2021-10-29 20:56 | NUR ---
PRN PRN TRAZODONE 50MG PO GIVEN FOR SLEEP PER REQUEST BY THE PATIENT.
--- NOTE | 2021-10-29 21:45 | NUR ---
FOLLOW UP PATIENT STATES SHE FEELS SLEEPY AND IS READY FOR BED. MEDICATION IS EFFECTIVE.
--- NOTE | 2021-10-30 03:41 | NUR ---
PIRP P: ALTERATION IN MOOD, ALTERED NUTRITION I: ASSESS REASONS FOR DEPRESSION/ANXIETY, MONITOR FOR CHANGES IN USUAL BEHAVIOR, Q15 MIN MONITORING, PROVIDE 1:1 TO ENCOURAGE EXPRESSION OF FEELINGS, PROVIDE SAFE AND SUPPORTIVE ENVIRONMENT, ALTERNATE REST/ACTIVITY, PROVIDE TASK-ORIENTED ACTIVITIES, PROVIDE MEDICATION EDUCATION, GIVE MEDICATIONS ORDERED, MONITOR INTAKE AND OUTPUT, REINFORCE EDUCATION REGARDING ADEQUATE PO FOOD/FLUID INTAKE R: PATIENT HAS CHEERFUL AFFECT. PATIENT IS COOPERATIVE AND PLEASANT. TAKES ALL MEDICATION PRESCRIBED. DENIES ANXIETY AND RATES DEPRESSION 03/10. DENIES HALLUCINATIONS, S/I AND H/I. NO DELUSIONS NOTED. PATIENT STATED SHE HAS HAD A GOOD. PATIENT HAS PARTICIPATED IN GROUP ACTIVITIES THIS SHIFT. PATIENT DID HAVE A PRN FOR SLEEP. PATIENT HAS NOT WOKE UP SINCE GOING TO BED. P: MONITORING EFFECTIVENESS OF ABILIFY
[2021-10-30 08:03] VITALS: BP 116/68
--- NOTE | 2021-10-30 08:16 | NUR ---
TELEMED PT SEEN BY DIANA PEREZ DRILL RUNNER VIA TELEMED, ORDERS RECEIVED TO INCREASE ABILIFY. PT AGREEABLE TO PLAN AT THIS TIME. SEE EMR.
--- NOTE | 2021-10-30 08:25 | PRM.PN ---
Mood: feeling tired, did not sleep well Sleep: not well Appetite: better Suidical thoughts: denies Homicidal thoughts: denies Family support: works for [employer], he had to respond to emergency Ability to Perform ADL'sc: doing own showering, want to do adls improving Psychotic sympstoms: denies Manic Symptoms: not as restless today, change in affect Family,PT,Surgical,&Current HX: (1) MDD (major depressive disorder), recurrent severe, without psychosis (2) Suicidal ideation Muscle Strength & Tone: WNL Gait & Station: Normal stance/post/gait Appearance: Disheveled (hair is bit puffy this morning, she is not feeling put together) Mood & Affect: Euthymic/appr/congruent, Full Orientation: Fully oriented per interv Attention/Concentration: Fair attention, Fair concentration Speech: Reg rate/vol/rhyth/prosod Judgement/Insight: Fair judgement, Fair insight Thought Process: Linear/goal directed Language: American Thought content/Abnormal/Psych: None/normal Fund of Knowledge: WNL Associations: WNL/Normal Associations Constitutional: None Neurological: None Psychiatric: Depressed (did not sleep well ) Zalma I: mdd, si rule out bipolar Assessment/Plan Assessment/Plan Assessment/Plan 45 yo F, hx of depression, admitted to [facility] for worsening mood and SI with plan in the context of medical issues and psychosocial stressors. Assessment: MDD, rec, severe w/o psychotic features- Managed by [facility] providers # History of Leona thyroiditis- she took 8 pills of 75 mcg levothyroxine yesterday and she is good for about a week. # Mild hypokalemia of 3.4- potassium chloride 20 M EQ p.o. daily for 3 days. can repeat CMP after that. 45 yo F, hx of depression, admitted to [facility] for worsening mood and SI with plan in the context of medical issues and psychosocial stressors. Patient's presentation is likely impacted by her Leona's, but we discussed possible treatment options for her depression. Reviewed R/B/BSEs of medications. PVU, agrees with plan. Zalma I: MDD, rec, severe w/o psychotic features Plan: 1) Medications: -continue Cymbalta 90mg PO QHS for mood/pain -continue Trazodone 50mg PO QHS PRN sleep -start WellbutrinXL 150mg PO QAM for mood -start Vistaril 25mg PO Q6hrs PRN anxiety 2) Continue behavioral management 3) Appreciate hospitalist assistance with medical issues 10/28/21: The patient was seen by JENNIFER Sheridan face to face via televi ernestine conference for a f/u psychiatric evaluation at [facility] unit. As per nursing, patient did fair during day time yesterday and last night. She participated in groups but keeping limited interaction with peers. Patient's visited her yesterday. Caity is attending to ADLs, she took a shower yesterday, patient has a tendency to pay less attention to personal hygiene when she goes through depressive episode. She is eating fair, she said she doesn't like the food over here, she has a lot of food restriction due to Leona's. Nursing will provide educational resource for Leona's diet. Patient slept for 6.25 hours last night after taking Trazodone. Caity was pleasant and cooperative during the assessment. She said she was tearful yesterday because she really wanted to go home. She reports feeling a little bit better today. Patient received the first dose of Wellbutrin yesterday. She mentioned of having mild itching on both arms and headache. She refused to take PRN Vistaril when offered. Patient said she will monitor herself and see if its from Wellbutrin. Advised to take Tylenol for headache. If headache persists or getting worse with further administration of Wellbutrin will make necessary med adjustment. Patient rated her depression 2/10 and anxiety 1/10 today. Motivation and energy are still on lower side. She denies SI, HI, and AV hallucinations. No med changes today. Will continue f/u on patient's mood and mediation tolerance. Zalma I: MDD, rec, severe w/o psychotic features Plan: 1) Medications: -continue Cymbalta 90mg PO QHS for mood/pain -continue Trazodone 50mg PO QHS PRN sleep -Continue WellbutrinXL 150mg PO QAM for mood. (Will consider switching to different antidepressant in case of side effects; headache and itching are persisting ). -Continue Vistaril 25mg PO Q6hrs PRN anxiety 2) Continue behavioral management 3) Appreciate hospitalist assistance with medical issues Vital Signs Date Time Temp Pulse Resp B/P (MAP) Pulse Ox O2 Delivery O2 Flow Rate FiO2 10/28/21 19:43 98.4 75 18 98 Room Air 0.00 Current Medications Medications (Trade) Dose Ordered Sig/Esthela PRN Reason Start Time Stop Time Status Last Admin Acetaminophen (Tylenol) 650 mg Q6H PRN PAIN 4-8 10/27/21 20:10 11/27/21 00:00 10/28/21 19:36 Acetaminophen/ Butalbital/ Caffeine (Fioricet) 2 each Q6 PRN MIGRAINE PAIN 10/28/21 21:00 11/27/21 20:59 Bupropion HCl (Wellbutrin Xl) 150 mg DAILY 10/28/21 09:00 11/27/21 08:59 10/28/21 08:56 Duloxetine HCl (Cymbalta) 90 mg HS 10/27/21 21:00 11/26/21 20:59 10/28/21 20:42 Hydroxyzine HCl (Atarax) 25 mg Q6HR PRN anxiety 10/27/21 11:00 11/26/21 10:59 Potassium Chloride (Klor-Con 10) 20 meq DAILY 10/28/21 09:00 10/31/21 11:00 10/28/21 08:56 Trazodone HCl (Desyrel) 50 mg HS PRN SLEEP 10/27/21 05:00 11/27/21 00:00 10/28/21 20:42 Vital Signs Date Time Temp Pulse Resp B/P (MAP) Pulse Ox O2 Delivery O2 Flow Rate FiO2 10/29/21 09:06 98.3 87 18 98 Room Air 0.00 10/29/21 Nursing report: slept 7.75 hours rated depression a 1, denies si, rated anxiety a zero participated in group, out of her room all day after nursing encouragement she reports feeling better, she had previously avoided eye contact able to participate in games and laugh her plans to visit tonight itchiness? not present she reports, she will suddenly change things, like her house, put it up for sale, quit her job, stopped her masters work Patient: situation change me last time depressed, told me resign form my job, stay with my mom, I stayed there 7 months, face was glowing, then we moved down there, I did not follow up through suicide, I figured I just need to go someplace to get me figured up I don't know my real dad, admits this time was real I am very disorganized, Summary: mild hypomania, smily, appears to have gained great energy today, affect mildly in congruent, talking but looking opposite direction, talks of suicidal thought and no sad affect Zalma I: MDD, rec, severe w/o psychotic features SI rule out bipolar, starting to hear of cycles in her mood, Plan: 1) Medications: -continue Cymbalta 90mg PO QHS for mood/pain -continue Trazodone 50mg PO QHS PRN sleep -Continue WellbutrinXL 150mg PO QAM for mood. (Will consider switching to different antidepressant in case of side effects; headache and itching are persisting ). -Continue Vistaril 25mg PO Q6hrs PRN anxiety ADD Abilify 2mg po daily; discussed target dose more likely 10mg daily for mood stabilizer, if no akathisia tonight; likely to increase tomorrow. discussed benefits and side effects 2) Continue behavioral management 3) Appreciate hospitalist assistance with medical issues Vital Signs Date Time Temp Pulse Resp B/P (MAP) Pulse Ox O2 Delivery O2 Flow Rate FiO2 10/30/21 08:03 98.0 65 18 98 Room Air 0.00 NUrsing: slept 6.75 hours this morning denies depression and anxiety, denies SI when she went to bed, hard time falling asleep, she could hear staff talking, did not rest well 10/30/21 Patient: can feel numb, not crying over any little thing, and I don't let others run me over, family feel I don't show enough emotions she admits she is wanting to sleep more this morning but is going to try stay awake Summary: Discussed goals of medications; she should feel like herself but be able to have full emotions and not having cycles in mood that include radical changes abruptly. will make some consideration to lower cymbalta, may have numbed her emotions too much, family would comment she was not showing appropriate emotion after but she felt that was better than being too emotional. Zalma I: MDD, rec, severe w/o psychotic features SI rule out bipolar, starting to hear of cycles in her mood, cycles in her patterns, radical changes suddenly in her life Plan: 1) Medications: -continue Cymbalta 90mg PO QHS for mood/pain -continue Trazodone 50mg PO QHS PRN sleep -Continue WellbutrinXL 150mg PO QAM for mood. (Will consider switching to different antidepressant in case of side effects; headache and itching are persisting ). -Continue Vistaril 25mg PO Q6hrs PRN anxiety Abilify increase to 5mg daily and dose in the morning, felt it made her sleep more restless after taking it at 5pm time. ; (target dose 10mg for mood stabilizer) 2) Continue behavioral management 3) Appreciate hospitalist assistance with medical issues Patient History: FH: pancreatic cancer DAUGHTER RAJAT PEREZ JOÃO Oct 30, 2021 08:25
[2021-10-30] MEDS ORDERED: WELLBUTRIN XL PO ONE (08:32)
[2021-10-30] MEDS ORDERED: ABILIFY ONE (08:32)
[2021-10-30] MEDS ORDERED: KLOR-CON 10 PO ONE (08:33)
[2021-10-30] MEDS: KLOR-CON 10 PO SCH (08:33)
[2021-10-30] MEDS: WELLBUTRIN XL PO SCH (08:33)
[2021-10-30] MEDS ORDERED: ABILIFY PO SCH (09:00)
[2021-10-30] MEDS: ABILIFY PO SCH (09:39)
[2021-10-30] MEDS ORDERED: TYLENOL ONE (09:42)
[2021-10-30] MEDS: TYLENOL PO PRN (09:43)
--- NOTE | 2021-10-30 12:47 | DIET.OP ---
Nutrition Asmt/Malnutrit 2-17 Actual Date of Review: Oct 30, 2021 Actual Time Reviewed Asmt: 12:39 Nutritional Screening: Malnutr/Diet Consult Diagnosis: Depression Pertinent Medical Hx/Surgical: Mathieu Subjective Information: 45 yo f, presented with depression and suicidal thoughts. Nursing reproted 10# past two months on nutrition screen, triggering consult. Current Diet Order/Nutrition S: Regular Patient /S.O: Not Indicated Pertinent Meds Desyrel, Cymbalta, KCL Abilify Pertinent Labs Hgb 14,5, Hct 46.7, Na+ 138, K+ 3.5L, BUN 14, Cr 101, Glu 115H, A1C 5.3, Ca+ 9.5, TP 7.7, Alb 4.2 Height (Inches): 66.5 Current Weight: 122 %IBW: 92 Recent Weight Change: Yes (10# loss x 2 months, 7.5%, significant) Weight Status: Appropriate GI Symptoms: None Food Allergies: No (NKFA) Cultural/Ethnic/Mandaeism Elisa: unknown Skin Integrity/Comment: Yes (skin intact) Current %PO: Good(75-100%) (per nursing) BEE in Kcals: Use Current Weight Calories/Kcals/K-30 Kcals Calculated: 2208-1435 Protein: Use Current Weight Protein g/k.1-1.3 Protein Calculated: 61-72 Fluid: ml: 0815-6023 (25-30) or per MD order Nutritional Problem: No Cur. Nutritional Probl Fluid Accumulation (N/A): N/A Reduced Pneudraulic Systems Mechanic Strength (N/A): N/A Protein-Calorie Malnutrition: N/A Is there a minimum of two crit: No Malnutrition Related to Morbid: No RD Comments: 10# wt loss, 7.5 % significant past two months. Current PO intake above 75%, plus she is eating snacks per health nursing. Will continue to monitor nutrition parameters. Expected Outcomes stable w/adequate hydration, labs WNL, skin integrity, nutrition needs met within 3 days. Normal Weight %: 90%-110% (Normal) BMI%: 19-24 (Normal) Serum Albumin g/dl: 3.5-5.0 (Normal) Malnutrtion/Nutrition Risk Edu: No low nutrition risk RD Follow-Up Date: Nov 06, 2021 Notificiation Needed?: No SHON COSTA Oct 30, 2021 12:47
--- NOTE | 2021-10-30 17:07 | NUR ---
PIRP P: DTS, ALTERATION IN MOOD, NUTRITION ALTERED I: Q 15 MIN MONITORING. PROVIDE SAFE AND SUPPORTIVE ENVIRONMENT. OBSERVE AND REPORT CHANGED IN BEHAVIOR. ENCOURAGE GROUP PARTICIPATION. ENCOURAGE OWN SELF CARE. PROVIDE MEDICATION ORDERED BY PHYSICIAN. PROVIDE MEDICATION EDUCATION. PROVIDE 1:1 TO ALLOW PT TO EXPRESS FEELINGS. MONITOR AND RECORD PERCENTAGE OF MEALS EATEN. R: PT HAS BEEN CHEERFUL THROUGHOUT SHIFT. PT HAS BEEN COOPERATIVE THROUGHOUT SHIFT. PT HAS REMAINED OUT OF HER ROOM ALL OF THIS SHIFT.PT DENIED DEPRESSION AND DENIED ANXIETY. PT DENIED SI/HI. NO HALLUCINATIONS OR DELUSIONS NOTED THROUGHOUT SHIFT. PT PARTICIPATED IN OWN SELF CARE. PT PARTICIPATED IN GROUP ACTIVITY WITH MINIMAL PROMPTING. PT TOOK ALL MEDICATION ORDERED BY PHYSICIAN. PT INITIATED INTERACTION WITH STAFF. APPETITE HAS INCREASED THIS SHIFT. P: INCREASED DOSE OF ABILIFY
[2021-10-30 18:57] VITALS: BP 119/81
[2021-10-30] MEDS ORDERED: CYMBALTA ONE (20:53)
[2021-10-30] MEDS: CYMBALTA PO SCH (20:54)
[2021-10-30] MEDS ORDERED: DESYREL ONE (23:59)
[2021-10-31] MEDS: DESYREL PO PRN ×2 (00:01→22:11)
--- NOTE | 2021-10-31 00:01 | NUR ---
PRN MEDICATION PT. REQUESTED AND RECEIVED TRAZODONE AT THIS TIME.
--- NOTE | 2021-10-31 00:45 | NUR ---
TRAZODONE FOLLOW UP PT. RESTING IN BED WITH EYES CLOSED AT THIS TIME.
--- NOTE | 2021-10-31 03:08 | NUR ---
PIRP P- DTS ALTERATION IN MOOD AND NUTRITION. I-OBSERVE BEHAVIORS, PROVIDE MEDICATION ORDERED AND PROVIDE SAFE AND SUPPORTIVE ENVIRONMENT. PROVIDE 1:1 INTERVENTION ALLOWING PT. TO EXPRESS THOUGHTS AND FEELINGS. PROVIDE SNACKS AT HS. 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 AND GOING HOME TO [place] FOR THE WEEKENDS. PT. DENIED SI TONIGHT.RATED DEPRESSION 1 AND ANXIETY 2. ATTENDED GROUP,ATE SNACKS AND PAINTED FINGERNAILS. SHE TALKED ABOUT THE PLAN OF FINISHING HER WILL IN [employer] THEN SHOOTING HERSELF BUT WAS GLAD SHE DECIDED TO COME HERE INSTEAD AND NOT HAVING FEELINGS OF SI NOW. TOOK MEDICATION ORDERED. RESTING IN BED WITH EYES CLOSED AT THIS TIME. P- WILL CONTINUE TO PROVIDE 1:1 INTERVENTION ALLOWING PT. TO EXPRESS THOUGHTS AND FEELINGS. PROVIDE MEDICATION ORDERED. OBSERVE BEHAVIORS.
[2021-10-31 07:45] VITALS: BP 128/77
[2021-10-31] MEDS ORDERED: ABILIFY ONE ×2 (09:00→15:56)
[2021-10-31] MEDS ORDERED: WELLBUTRIN XL PO ONE (09:00)
[2021-10-31] MEDS: WELLBUTRIN XL PO SCH (09:01)
[2021-10-31] MEDS: ABILIFY PO SCH (09:01)
[2021-10-31] MEDS ORDERED: KLOR-CON 10 PO ONE (10:19)
[2021-10-31] MEDS: KLOR-CON 10 PO SCH (10:21)
--- NOTE | 2021-10-31 15:18 | NUR ---
TELEMED PATIENT WAS SEEN BY Stephen PEREZ APRN VIA TELEMEDICINE. RECEIVED ORDERS FOR OT DOSE OF ABILIFY AND INCREASE DAILY DOSE OF ABILIFY. PATIENT AGREEABLE WITH PLAN, SEE EMR.
--- NOTE | 2021-10-31 15:22 | PRM.PN ---
Mood: slow, sluggish yesterday, the night before not sleeping well Sleep: 5.25 hours, much noise on the unit, has issues sleeping in bed here Appetite: good Suidical thoughts: denies Homicidal thoughts: denies Recent stressors: decisions, work and college, bringing anxiety a 4-5, has to pay bills Family support: support from , Psychotic sympstoms: denies Manic Symptoms: denies Family,PT,Surgical,&Current HX: (1) Bipolar II disorder (2) Suicidal ideation Muscle Strength & Tone: WNL Gait & Station: Normal stance/post/gait Appearance: Well groomed/hygience (appears clean, hair is placed up, no makeup, ) Mood & Affect: Euthymic/appr/congruent, Blunted Orientation: Fully oriented per interv Attention/Concentration: Fair attention, Fair concentration Speech: Reg rate/vol/rhyth/prosod Judgement/Insight: Fair judgement, Fair insight Thought Process: Circumferential Language: Kyrgyz Thought content/Abnormal/Psych: None/normal Fund of Knowledge: WNL Associations: WNL/Normal Associations Constitutional: None Neurological: None Psychiatric: Anxious [place] I: bipolar II, SI Assessment/Plan Assessment/Plan Assessment/Plan 45 yo F, hx of depression, admitted to [facility] for worsening mood and SI with plan in the context of medical issues and psychosocial stressors. Assessment: MDD, rec, severe w/o psychotic features- Managed by [facility] providers # History of Leona thyroiditis- she took 8 pills of 75 mcg levothyroxine yesterday and she is good for about a week. # Mild hypokalemia of 3.4- potassium chloride 20 M EQ p.o. daily for 3 days. can repeat CMP after that. 45 yo F, hx of depression, admitted to [facility] for worsening mood and SI with plan in the context of medical issues and psychosocial stressors. Patient's presentation is likely impacted by her Leona's, but we discussed possible treatment options for her depression. Reviewed R/B/BSEs of medications. PVU, agrees with plan. [place] I: MDD, rec, severe w/o psychotic features Plan: 1) Medications: -continue Cymbalta 90mg PO QHS for mood/pain -continue Trazodone 50mg PO QHS PRN sleep -start WellbutrinXL 150mg PO QAM for mood -start Vistaril 25mg PO Q6hrs PRN anxiety 2) Continue behavioral management 3) Appreciate hospitalist assistance with medical issues 10/28/21: The patient was seen by JENNIFER Sheridan face to face via televideo conference for a f/u psychiatric evaluation at [facility] unit. As per nursing, patient did fair during day time yesterday and last night. She participated in groups but keeping limited interaction with peers. Patient's visited her yesterday. Caity is attending to ADLs, she took a shower yesterday, patient has a tendency to pay less attention to personal hygiene when she goes through depressive episode. She is eating fair, she said she doesn't like the food over here, she has a lot of food restriction due to Leona's. Nursing will provide educational resource for Leona's diet. Patient slept for 6.25 hours last night after taking Trazodone. Caity was pleasant and cooperative during the assessment. She said she was tearful yesterday because she really wanted to go home. She reports feeling a little bit better today. Patient received the first dose of Wellbutrin yesterday. She mentioned of having mild itching on both arms and headache. She refused to take PRN Vistaril when offered. Patient said she will monitor herself and see if its from Wellbutrin. Advised to take Tylenol for headache. If headache persists or getting worse with further administration of Wellbutrin will make necessary med adjustment. Patient rated her depression 2/10 and anxiety 1/10 today. Motivation and energy are still on lower side. She denies SI, HI, and AV hallucinations. No med changes today. Will continue f/u on patient's mood and mediation tolerance. [place] I: MDD, rec, severe w/o psychotic features Plan: 1) Medications: -continue Cymbalta 90mg PO QHS for mood/pain -continue Trazodone 50mg PO QHS PRN sleep -Continue WellbutrinXL 150mg PO QAM for mood. (Will consider switching to different antidepressant in case of side effects; headache and itching are persisting ). -Continue Vistaril 25mg PO Q6hrs PRN anxiety 2) Continue behavioral management 3) Appreciate hospitalist assistance with medical issues Vital Signs Date Time Temp Pulse Resp B/P (MAP) Pulse Ox O2 Delivery O2 Flow Rate FiO2 10/28/21 19:43 98.4 75 18 98 Room Air 0.00 Current Medications Medications (Trade) Dose Ordered Sig/Esthela PRN Reason Start Time Stop Time Status Last Admin Acetaminophen (Tylenol) 650 mg Q6H PRN PAIN 4-8 10/27/21 20:10 11/27/21 00:00 10/28/21 19:36 Acetaminophen/ Butalbital/ Caffeine (Fioricet) 2 each Q6 PRN MIGRAINE PAIN 10/28/21 21:00 11/27/21 20:59 Bupropion HCl (Wellbutrin Xl) 150 mg DAILY 10/28/21 09:00 11/27/21 08:59 10/28/21 08:56 Duloxetine HCl (Cymbalta) 90 mg HS 10/27/21 21:00 11/26/21 20:59 10/28/21 20:42 Hydroxyzine HCl (Atarax) 25 mg Q6HR PRN anxiety 10/27/21 11:00 11/26/21 10:59 Potassium Chloride (Klor-Con 10) 20 meq DAILY 10/28/21 09:00 10/31/21 11:00 10/28/21 08:56 Trazodone HCl (Desyrel) 50 mg HS PRN SLEEP 10/27/21 05:00 11/27/21 00:00 10/28/21 20:42 Vital Signs Date Time Temp Pulse Resp B/P (MAP) Pulse Ox O2 Delivery O2 Flow Rate FiO2 10/29/21 09:06 98.3 87 18 98 Room Air 0.00 10/29/21 Nursing report: slept 7.75 hours rated depression a 1, denies si, rated anxiety a zero participated in group, out of her room all day after nursing encouragement she reports feeling better, she had previously avoided eye contact able to participate in games and laugh her plans to visit tonight itchiness? not present she reports, she will suddenly change things, like her house, put it up for sale, quit her job, stopped her masters work Patient: situation change me last time depressed, told me resign form my job, stay with my mom, I stayed there 7 months, face was glowing, then we moved down there, I did not follow up through suicide, I figured I just need to go someplace to get me figured up I don't know my real dad, admits this time was real I am very disorganized, Summary: mild hypomania, smily, appears to have gained great energy today, affect mildly in congruent, talking but looking opposite direction, talks of suicidal thought and no sad affect [place] I: MDD, rec, severe w/o psychotic features SI rule out bipolar, starting to hear of cycles in her mood, Plan: 1) Medications: -continue Cymbalta 90mg PO QHS for mood/pain -continue Trazodone 50mg PO QHS PRN sleep -Continue WellbutrinXL 150mg PO QAM for mood. (Will consider switching to different antidepressant in case of side effects; headache and itching are persisting ). -Continue Vistaril 25mg PO Q6hrs PRN anxiety ADD Abilify 2mg po daily; discussed target dose more likely 10mg daily for mood stabilizer, if no akathisia tonight; likely to increase tomorrow. discussed benefits and side effects 2) Continue behavioral management 3) Appreciate hospitalist assistance with medical issues Vital Signs Date Time Temp Pulse Resp B/P (MAP) Pulse Ox O2 Delivery O2 Flow Rate FiO2 10/30/21 08:03 98.0 65 18 98 Room Air 0.00 NUrsing: slept 6.75 hours this morning denies depression and anxiety, denies SI when she went to bed, hard time falling asleep, she could hear staff talking, did not rest well 10/30/21 Patient: can feel numb, not crying over any little thing, and I don't let others run me over, family feel I don't show enough emotions she admits she is wanting to sleep more this morning but is going to try stay awake Summary: Discussed goals of medications; she should feel like herself but be able to have full emotions and not having cycles in mood that include radical changes abruptly. will make some consideration to lower cymbalta, may have num bed her emotions too much, family would comment she was not showing appropriate emotion after but she felt that was better than being too emotional. [place] I: MDD, rec, severe w/o psychotic features SI rule out bipolar, starting to hear of cycles in her mood, cycles in her patterns, radical changes suddenly in her life Plan: 1) Medications: -continue Cymbalta 90mg PO QHS for mood/pain -continue Trazodone 50mg PO QHS PRN sleep -Continue WellbutrinXL 150mg PO QAM for mood. (Will consider switching to different antidepressant in case of side effects; headache and itching are persisting ). -Continue Vistaril 25mg PO Q6hrs PRN anxiety Abilify increase to 5mg daily and dose in the morning, felt it made her sleep more restless after taking it at 5pm time. 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 She admits that suicidal thinking of the past was rather continuous and her mother would frequently hear about this in their conversations together, while she is not currently suicidal her confidence in it's resolution is not well. [place] I: Bipolar II F31.81 (cycles in her mood, cycles in her patterns, radical changes suddenly in her life) SI Admitting diagnosis was MDD Plan: 1) Medications: -continue Cymbalta 90mg PO QHS for mood/pain -continue Trazodone 50mg PO QHS PRN sleep -Continue WellbutrinXL 150mg PO QAM for mood. -Continue Vistaril 25mg PO Q6hrs PRN anxiety Abilify increase to 10mg daily for mood stabilization, as of today still appearing overwhelmed, not able to fully problem solve yet, hesitant to make decisions 2) Continue behavioral management 3) Appreciate hospitalist assistance with medical issues Potential discharge Wednesday; She plans to follow up with [facility] for therapy and psychiatry She has a PCP, She plans to register with the [facility]'s disability office, Tamiko VU is preparing basic letter of hospital length with diagnosis Patient History: FH: pancreatic cancer DAUGHTER RAJAT PEREZ UNLOADING CHECKER Oct 31, 2021 15:22
--- NOTE | 2021-10-31 15:59 | NUR ---
PIRP P: ALTERATION IN MOOD, ALTERED NUTRITION I: ASSESS REASONS FOR DEPRESSION/ANXIETY, MONITOR FOR CHANGES IN USUAL BEHAVIOR, Q15 MIN MONITORING, PROVIDE 1:1 TO ENCOURAGE EXPRESSION OF FEELINGS, PROVIDE SAFE AND SUPPORTIVE ENVIRONMENT, PROVIDE TASK-ORIENTED ACTIVITIES, GIVE MEDICATIONS ORDERED, MONITOR INTAKE AND OUTPUT, REINFORCE EDUCATION REGARDING ADEQUATE PO FOOD/FLUID INTAKE, USE CALM REASSURING APPROACH R: PATIENT HAS BRIGHT, PLEASANT AFFECT THROUGHOUT SHIFT. RATES DEPRESSION 03/10, ANXIETY /, DENIES SI/HI. NO HALLUCINATIONS/DELUSIONS NOTED. PATIENT REPORTS IMPROVEMENT IN MOOD, VERBALIZES INCREASE IN ANXIETY R/T THINGS SHE NEEDS TO DO WHEN SHE GOES HOME, INCLUDING NOTIFYING HER JOB AND SCHOOL WHERE SHE WAS. PATIENT HAS PARTICIPATED IN GROUP ACTIVITIES, TAKES MEDICATIONS ORDERED, AND PARTICIPATES IN OWN SELF-CARE. HAS INITIATED INTERACTION WITH STAFF AND PEERS AND HAS REMAINED IN DAY ROOM WITHOUT NEED FOR PROMPTING. P: CAROLA INCREASED
[2021-10-31] MEDS ORDERED: ABILIFY PO SCH (16:00)
--- NOTE | 2021-10-31 16:33 | NUR ---
FOLLOW UP PATIENT IS TO FOLLOW UP WITH DR. KAYLA GILBERT AT [facility] ON 11/17/21 AT 10:00 A.M. ADDRESS: [facility], [place] [address] PHONE #: [phone] FAX #: [phone] PATIENT WILL NEED TO CONTACT EN TOUCH COUNSELING TO SET UP APPOINTMENT FOR EVAL FOR OUTPATIENT MENTAL HEALTH SERVICES ON 11/07/21. ADDRESS: [address], [place] [address] PHONE #: [phone] FAX #: [phone]
[2021-10-31 19:40] VITALS: BP 113/74
[2021-10-31] MEDS: CYMBALTA PO SCH (20:09)
[2021-10-31] MEDS ORDERED: CYMBALTA ONE (20:09)
[2021-10-31] MEDS ORDERED: DESYREL ONE (22:11)
--- NOTE | 2021-10-31 22:11 | NUR ---
PRN TRAZODONE ADMINISTRATION PATIENT REQUESTING SOMETHING TO HELP HER SLEEP. ADMINISTERED TRAZODONE 50MG PO AT THIS TIME.
--- NOTE | 2021-11-01 00:54 | NUR ---
PRN TRAZODONE FOLLOW UP MEDICATION EFFECTIVE
--- NOTE | 2021-11-01 04:20 | NUR ---
PIRP P- DTS ALTERATION IN MOOD AND NUTRITION. I-OBSERVE BEHAVIORS, PROVIDE MEDICATION ORDERED AND PROVIDE SAFE AND SUPPORTIVE ENVIRONMENT. PROVIDE 1:1 INTERVENTION ALLOWING PT. TO EXPRESS THOUGHTS AND FEELINGS. PROVIDE SNACKS AT HS. R- PT. DENIED SI THIS SHIFT. PATIENT RATED DEPRESSION 1 AND ANXIETY 1. PLEASANT AFFECT NOTED. PATIENT ATTENDED GROUP, ATE SNACKS. PATIENT CHOSE TO COLOR FOR GROUP. PATIENT TOOK MEDICATIONS ORDERED. PATIENT SHOWERED AND PATIENT RESTING IN BED WITH EYES CLOSED AT THIS TIME. P- WILL CONTINUE TO PROVIDE 1:1 INTERVENTION ALLOWING PT. TO EXPRESS THOUGHTS AND FEELINGS. PROVIDE MEDICATION ORDERED. OBSERVE BEHAVIORS.
[2021-11-01 09:25] VITALS: BP 121/78
[2021-11-01] MEDS: ABILIFY PO SCH (10:08)
[2021-11-01] MEDS: WELLBUTRIN XL PO SCH (10:08)
[2021-11-01] MEDS: TYLENOL PO PRN ×2 (10:14→21:43)
--- NOTE | 2021-11-01 11:32 | PRM.PN ---
Mood: "Tired" congruent affect Sleep: 6.25 mg after taking Trazodone Appetite: Fair Suidical thoughts: Denies Homicidal thoughts: Denies Recent stressors: None reorted Family support: is supportive, checking on her daily Aggressive Behavior: Denies Ability to Perform ADL'sc: Good Psychotic sympstoms: Denies Manic Symptoms: Denies Living situation: Lives with Illicit Drug usec: Denies Alcoholo use: Denies Anxity Symptoms: Moderate anxiety Anger/Irritablility: Denies Muscle Strength & Tone: WNL Gait & Station: Normal stance/post/gait Appearance: Well groomed/hygience Mood & Affect: Euthymic/appr/congruent Orientation: Fully oriented per interv Attention/Concentration: Good attention, Good concentration Speech: Reg rate/vol/rhyth/prosod Judgement/Insight: Good judgement Thought Process: Linear/goal directed Language: Faroese Thought content/Abnormal/Psych: None/normal Fund of Knowledge: WNL Associations: WNL/Normal Associations Memory (recent and remote): Gross int/not form assess Constitutional: None Neurological: None Psychiatric: None [place] I: MDD, rec, severe w/o psychotic features Assessment/Plan Assessment/Plan Assessment/Plan 45 yo F, hx of depression, admitted to [facility] for worsening mood and SI with plan in the context of medical issues and psychosocial stressors. Assessment: MDD, rec, severe w/o psychotic features- Managed by [facility] providers # History of Leona thyroiditis- she took 8 pills of 75 mcg levothyroxine yesterday and she is good for about a week. # Mild hypokalemia of 3.4- potassium chloride 20 M EQ p.o. daily for 3 days. can repeat CMP after that. 45 yo F, hx of depression, admitted to [facility] for worsening mood and SI with plan in the context of medical issues and psychosocial stressors. Patient's presentation is likely impacted by her Leona's, but we discussed possible treatment options for her depression. Reviewed R/B/BSEs of medications. PVU, agrees with plan. [place] I: MDD, rec, severe w/o psychotic features Plan: 1) Medications: -continue Cymbalta 90mg PO QHS for mood/pain -continue Trazodone 50mg PO QHS PRN sleep -start WellbutrinXL 150mg PO QAM for mood -start Vistaril 25mg PO Q6hrs PRN anxiety 2) Continue behavioral management 3) Appreciate hospitalist assistance with medical issues 10/28/21: The patient was seen by JENNIFER Sheridan face to face via televideo conference for a f/u psychiatric evaluation at [facility] unit. As per nursing, patient did fair during day time yesterday and last night. She participated in groups but keeping limited interaction with peers. Patient's visited her yesterday. Caity is attending to ADLs, she took a shower yesterday, patient has a tendency to pay less attention to personal hygiene when she goes through depressive episode. She is eating fair, she said she doesn't like the food over here, she has a lot of food restriction due to Leona's. Nursing will provide educational resource for Leona's diet. Patient slept for 6.25 hours last night after taking Trazodone. Caity was pleasant and cooperative during the assessment. She said she was tearful yesterday because she really wanted to go home. She reports feeling a little bit better today. Patient received the first dose of Wellbutrin yesterday. She mentioned of having mild itching on both arms and headache. She refused to take PRN Vistaril when offered. Patient said she will monitor herself and see if its from Wellbutrin. Advised to take Tylenol for headache. If headache persists or getting worse with further administration of Wellbutrin will make necessary med adjustment. Patient rated her depression 2/10 and anxiety 1/10 today. Motivation and energy are still on lower side. She denies SI, HI, and AV hallucinations. No med changes today. Will continue f/u on patient's mood and mediation tolerance. [place] I: MDD, rec, severe w/o psychotic features Plan: 1) Medications: -continue Cymbalta 90mg PO QHS for mood/pain -continue Trazodone 50mg PO QHS PRN sleep -Continue WellbutrinXL 150mg PO QAM for mood. (Will consider switching to different antidepressant in case of side effects; headache and itching are persisting ). -Continue Vistaril 25mg PO Q6hrs PRN anxiety 2) Continue behavioral management 3) Appreciate hospitalist assistance with medical issues Vital Signs Date Time Temp Pulse Resp B/P (MAP) Pulse Ox O2 Delivery O2 Flow Rate FiO2 10/28/21 19:43 98.4 75 18 98 Room Air 0.00 Current Medications Medications (Trade) Dose Ordered Sig/Esthela PRN Reason Start Time Stop Time Status Last Admin Acetaminophen (Tylenol) 650 mg Q6H PRN PAIN 4-8 10/27/21 20:10 11/27/21 00:00 10/28/21 19:36 Acetaminophen/ Butalbital/ Caffeine (Fioricet) 2 each Q6 PRN MIGRAINE PAIN 10/28/21 21:00 11/27/21 20:59 Bupropion HCl (Wellbutrin Xl) 150 mg DAILY 10/28/21 09:00 11/27/21 08:59 10/28/21 08:56 Duloxetine HCl (Cymbalta) 90 mg HS 10/27/21 21:00 11/26/21 20:59 10/28/21 20:42 Hydroxyzine HCl (Atarax) 25 mg Q6HR PRN anxiety 10/27/21 11:00 11/26/21 10:59 Potassium Chloride (Klor-Con 10) 20 meq DAILY 10/28/21 09:00 10/31/21 11:00 10/28/21 08:56 Trazodone HCl (Desyrel) 50 mg HS PRN SLEEP 10/27/21 05:00 11/27/21 00:00 10/28/21 20:42 Vital Signs Date Time Temp Pulse Resp B/P (MAP) Pulse Ox O2 Delivery O2 Flow Rate FiO2 10/29/21 09:06 98.3 87 18 98 Room Air 0.00 10/29/21 Nursing report: slept 7.75 hours rated depression a 1, denies si, rated anxiety a zero participated in group, out of her room all day after nursing encouragement she reports feeling better, she had previously avoided eye contact able to participate in games and laugh her plans to visit tonight itchiness? not present she reports, she will suddenly change things, like her house, put it up for sale, quit her job, stopped her masters work Patient: situation change me last time depressed, told me resign form my job, stay with my mom, I stayed there 7 months, face was glowing, then we moved down there, I did not follow up through suicide, I figured I just need to go someplace to get me figured up I don't know my real dad, admits this time was real I am very disorganized, Summary: mild hypomania, smily, appears to have gained great energy today, affect mildly in congruent, talking but looking opposite direction, talks of suicidal thought and no sad affect [place] I: MDD, rec, severe w/o psychotic features SI rule out bipolar, starting to hear of cycles in her mood, Plan: 1) Medications: -continue Cymbalta 90mg PO QHS for mood/pain -continue Trazodone 50mg PO QHS PRN sleep -Continue WellbutrinXL 150mg PO QAM for mood. (Will consider switching to different antidepressant in case of side effects; headache and itching are persisting ). -Continue Vistaril 25mg PO Q6hrs PRN anxiety ADD Abilify 2mg po daily; discussed target dose more likely 10mg daily for mood stabilizer, if no akathisia tonight; likely to increase tomorrow. discussed reza efits and side effects 2) Continue behavioral management 3) Appreciate hospitalist assistance with medical issues Vital Signs Date Time Temp Pulse Resp B/P (MAP) Pulse Ox O2 Delivery O2 Flow Rate FiO2 10/30/21 08:03 98.0 65 18 98 Room Air 0.00 NUrsing: slept 6.75 hours this morning denies depression and anxiety, denies SI when she went to bed, hard time falling asleep, she could hear staff talking, did not rest well 10/30/21 Patient: can feel numb, not crying over any little thing, and I don't let others run me over, family feel I don't show enough emotions she admits she is wanting to sleep more this morning but is going to try stay awake Summary: Discussed goals of medications; she should feel like herself but be able to have full emotions and not having cycles in mood that include radical changes abruptly. will make some consideration to lower cymbalta, may have numbed her emotions too much, family would comment she was not showing appropriate emotion after but she felt that was better than being too emotional. [place] I: MDD, rec, severe w/o psychotic features SI rule out bipolar, starting to hear of cycles in her mood, cycles in her patterns, radical changes suddenly in her life Plan: 1) Medications: -continue Cymbalta 90mg PO QHS for mood/pain -continue Trazodone 50mg PO QHS PRN sleep -Continue WellbutrinXL 150mg PO QAM for mood. (Will consider switching to different antidepressant in case of side effects; headache and itching are per sisting ). -Continue Vistaril 25mg PO Q6hrs PRN anxiety Abilify increase to 5mg daily and dose in the morning, felt it made her sleep more restless after taking it at 5pm time. 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 She admits that suicidal thinking of the past was rather continuous and her mother would frequently hear about this in their conversations together, while she is not currently suicidal her confidence in it's resolution is not well. [place] I: Bipolar II F31.81 (cycles in her mood, cycles in her patterns, radical changes suddenly in her life) SI Admitting diagnosis was MDD Plan: 1) Medications: -continue Cymbalta 90mg PO QHS for mood/pain -continue Trazodone 50mg PO QHS PRN sleep -Continue WellbutrinXL 150mg PO QAM for mood. -Continue Vistaril 25mg PO Q6hrs PRN anxiety Abilify increase to 10mg daily for mood stabilization, as of today still appearing overwhelmed, not able to fully problem solve yet, hesitant to make decisions 2) Continue behavioral management 3) Appreciate hospitalist assistance with medical issues Potential discharge Wednesday; She plans to follow up with [facility] for therapy and psychiatry She has a PCP, She plans to register with the [facility]'s disability office, Tamiko [facility]U is preparing basic letter of hospital length with diagnosis 11/01/21: Patient presented with a pleasant mood, reports feeling tired but more calm today. Less anxious and depressed. She denies SI today, slept 6.25 hours last night after taking PRN Trazodone. Rated both anxiety and depression 03/10 today. Patient took Abilify 10mg this morning, she took Abilify 5 BID yesterday. She doesn't know if the Abilify 10mg she took this morning is making her feel tired. Will monitor her today for tiredness. If the tiredness persisting will move Abilify at HS. Patient said she likes Abilify it helps her with racing thoughts and depression. She denies SI, HI, and AV hallucinations. She is med and meal compliant, participating in groups and interacting with peers. No concerns today other than tiredness. Her mood has been stable. Possible discharg e on Wednesday. Plan: 1) Medications: -continue Cymbalta 90mg PO QHS for mood/pain -continue Trazodone 50mg PO QHS PRN sleep -Continue WellbutrinXL 150mg PO QAM for mood. 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
--- NOTE | 2021-11-01 18:40 | NUR ---
P.I.R.P. P. DANGER TO SELF/ALTERATION IN MOOD I. PROVIDE EVERY 15 MINUTE OBSERVATION WITH DOCUMENTATION, PROVIDE SAFE AND SECURE ENVIRONMENT, PROVIDE MEDICATION WITH EDUCATION ON MEDS ORDERED PER MD. PROVIDE TASK ORIENTED GROUP ACTIVITY AND ENCOURAGE PARTICIPATION. MONITOR FOR TRIGGERS FOR MOOD CHANGES. R. PATIENT TOOK ALL MEDS ORDERED, PATIENT VOICES SHE DOES NOT HAVE S/I, REPORTS ANXIETY 1, DEPRESSION 1, REPORTS SHE DOES FEEL CALMER BUT HAS INCREASED TIREDNESS SINCE ABILIFY TAKEN IN AM. DISCUSSED WITH NIRMALA ELLIOTT DURING TELEMED WILL RE EVAL IN AM IF ABILIFY MAY NEED TO BE MOVED TO , DISCHARGE PLANS POSSIBLY FOR WEDNESDAY DUE TO SAME. P. CONTINUE CURRENT PLAN CARE.
[2021-11-01 19:51] VITALS: BP 126/91
[2021-11-01] MEDS ORDERED: CYMBALTA ONE (20:46)
[2021-11-01] MEDS: CYMBALTA PO SCH (21:41)
[2021-11-01] MEDS ORDERED: TYLENOL ONE (21:42)
--- NOTE | 2021-11-01 21:43 | NUR ---
PRN TYLENOL ADMINISTRATION PATIENT REQUESTING TYLENOL FOR ACHING PAIN NOTED TO SHELLIE CALVES. PATIENT STATES PAIN IS 6/10
--- NOTE | 2021-11-01 22:24 | NUR ---
PRN TYLENOL FOLLOW UP MEDICATION EFFECTIVE.
--- NOTE | 2021-11-02 06:24 | NUR ---
PIRP- P- DTS AND ALTERATION IN MOOD I-PROVIDE MEDICATION ORDERED BY PHYSICIAN,OBSERVE BEHAVIORS AND PROVIDE SAFE AND SUPPORTIVE ENVIRONMENT. PROVIDE 1:1 INTERVENTION ALLOWING PT. TO EXPRESS THOUGHTS AND FEELINGS. R- PT. RATED DEPRESSION 1 AND ANXIETY 2. DENIED SI TONIGHT. ATTENDED GROUP,ATE SNACKS AND INITIATED INTERACTION. PARTICIPAED IN GROUP ACTIVITY. PLEASANT AFFECT. PT. STATES SHE IS THANKFUL SHE GOT HELP AND IS LOOKING FORWARD TO GOING HOME. TOOK MEDICATION ORDERED. RESTING IN BED WITH EYES CLOSED AT THIS TIME. P- WILL CONTINUE TO PROVIDE MEDICATION ORDERED, OBSERVE BEHAVIORS.
--- NOTE | 2021-11-02 08:06 | PRM.PN ---
Mood: Better today Sleep: 7 hours Appetite: Good Suidical thoughts: Denies Homicidal thoughts: Denies Recent stressors: None reported Family support: is supportive Aggressive Behavior: None reported Ability to Perform ADL'sc: Good Psychotic sympstoms: Denies AVH, delusional and paranoid thoughts Manic Symptoms: No manic symptoms presents Living situation: Lives with and kids Illicit Drug usec: Denies Alcoholo use: Denies Tobacco use: Denies Anxity Symptoms: Mild anxiety Anger/Irritablility: Denies Muscle Strength & Tone: WNL Gait & Station: Normal stance/post/gait Appearance: Well groomed/hygience Mood & Affect: Euthymic/appr/congruent Orientation: Fully oriented per interv Attention/Concentration: Good attention Speech: Reg rate/vol/rhyth/prosod Judgement/Insight: Good judgement, Good insight Thought Process: Linear/goal directed Language: Latvian Thought content/Abnormal/Psych: None/normal Fund of Knowledge: WNL Associations: WNL/Normal Associations Memory (recent and remote): Gross int/not form assess Constitutional: None Neurological: None Psychiatric: None Lostant I: MDD sev rec w/o psychotic features Assessment/Plan Assessment/Plan Assessment/Plan 45 yo F, hx of depression, admitted to [facility] for worsening mood and SI with plan in the context of medical issues and psychosocial stressors. Assessment: MDD, rec, severe w/o psychotic features- Managed by [facility] providers # History of Leona thyroiditis- she took 8 pills of 75 mcg levothyroxine yesterday and she is good for about a week. # Mild hypokalemia of 3.4- potassium chloride 20 M EQ p.o. daily for 3 days. c an repeat CMP after that. 45 yo F, hx of depression, admitted to [facility] for worsening mood and SI with plan in the context of medical issues and psychosocial stressors. Patient's presentation is likely impacted by her Leona's, but we discussed possible treatment options for her depression. Reviewed R/B/BSEs of medications. PVU, agrees with plan. Lostant I: MDD, rec, severe w/o psychotic features Plan: 1) Medications: -continue Cymbalta 90mg PO QHS for mood/pain -continue Trazodone 50mg PO QHS PRN sleep -start WellbutrinXL 150mg PO QAM for mood -start Vistaril 25mg PO Q6hrs PRN anxiety 2) Continue behavioral management 3) Appreciate hospitalist assistance with medical issues 10/28/21: The patient was seen by JENNIFER Sheridan face to face via televideo conference for a f/u psychiatric evaluation at [facility] unit. As per nursing, patient did fair during day time yesterday and last night. She participated in groups but keeping limited interaction with peers. Patient's visited her yesterday. Caity is attending to ADLs, she took a shower yesterday, patient has a tendency to pay less attention to personal hygiene when she goes through depressive episode. She is eating fair, she said she doesn't like the food over here, she has a lot of food restriction due to Leona's. Nursing will provide educational resource for Leona's diet. Patient slept for 6.25 hours last night after taking Trazodone. Caity was pleasant and cooperative during the assessment. She said she was tearful yesterday because she really wanted to go home. She reports feeling a little bit better today. Patient received the first dose of Wellbutrin yesterday. She mentioned of having mild itching on both arms and headache. She refused to take PRN Vistaril when offered. Patient said she will monitor herself and see if its from Wellbutrin. Advised to take Tylenol for headache. If headache persists or getting worse with further administration of Wellbutrin will make necessary med adjustment. Patient rated her depression 2/10 and anxiety 1/10 today. Motivation and energy are still on lower side. She denies SI, HI, and AV hallucinations. No med changes today. Will continue f/u on patient's mood and mediation tolerance. Lostant I: MDD, rec, severe w/o psychotic features Plan: 1) Medications: -continue Cymbalta 90mg PO QHS for mood/pain -continue Trazodone 50mg PO QHS PRN sleep -Continue WellbutrinXL 150mg PO QAM for mood. (Will consider switching to different antidepressant in case of side effects; headache and itching are persisting ). -Continue Vistaril 25mg PO Q6hrs PRN anxiety 2) Continue behavioral management 3) Appreciate hospitalist assistance with medical issues Vital Signs Date Time Temp Pulse Resp B/P (MAP) Pulse Ox O2 Delivery O2 Flow Rate FiO2 10/28/21 19:43 98.4 75 18 98 Room Air 0.00 Current Medications Medications (Trade) Dose Ordered Sig/Esthela PRN Reason Start Time Stop Time Status Last Admin Acetaminophen (Tylenol) 650 mg Q6H PRN PAIN 4-8 10/27/21 20:10 11/27/21 00:00 10/28/21 19:36 Acetaminophen/ Butalbital/ Caffeine (Fioricet) 2 each Q6 PRN MIGRAINE PAIN 10/28/21 21:00 11/27/21 20:59 Bupropion HCl (Wellbutrin Xl) 150 mg DAILY 10/28/21 09:00 11/27/21 08:59 10/28/21 08:56 Duloxetine HCl (Cymbalta) 90 mg HS 10/27/21 21:00 11/26/21 20:59 10/28/21 20:42 Hydroxyzine HCl (Atarax) 25 mg Q6HR PRN anxiety 10/27/21 11:00 11/26/21 10:59 Potassium Chloride (Klor-Con 10) 20 meq DAILY 10/28/21 09:00 10/31/21 11:00 10/28/21 08:56 Trazodone HCl (Desyrel) 50 mg HS PRN SLEEP 10/27/21 05:00 11/27/21 00:00 10/28/21 20:42 Vital Signs Date Time Temp Pulse Resp B/P (MAP) Pulse Ox O2 Delivery O2 Flow Rate FiO2 10/29/21 09:06 98.3 87 18 98 Room Air 0.00 10/29/21 Nursing report: slept 7.75 hours rated depression a 1, denies si, rated anxiety a zero participated in group, out of her room all day after nursing encouragement she reports feeling better, she had previously avoided eye contact able to participate in games and laugh her plans to visit tonight itchiness? not present she reports, she will suddenly change things, like her house, put it up for sale, quit her job, stopped her masters work Patient: situation change me last time depressed, told me resign form my job, stay with my mom, I stayed there 7 months, face was glowing, then we moved down there, I did not follow up through suicide, I figured I just need to go someplace to get me figured up I don't know my real dad, admits this time was real I am very disorganized, Summary: mild hypomania, smily, appears to have gained great energy today, affect mildly in congruent, talking but looking opposite direction, talks of suicidal thought and no sad affect Lostant I: MDD, rec, severe w/o psychotic features SI rule out bipolar, starting to hear of cycles in her mood, Plan: 1) Medications: -continue Cymbalta 90mg PO QHS for mood/pain -continue Trazodone 50mg PO QHS PRN sleep -Continue WellbutrinXL 150mg PO QAM for mood. (Will consider switching to different antidepressant in case of side effects; headache and itching are persisting ). -Continue Vistaril 25mg PO Q6hrs PRN anxiety ADD Abilify 2mg po daily; discussed target dose more likely 10mg daily for mood stabilizer, if no akathisia tonight; likely to increase tomorrow. discussed benefits and side effects 2) Continue behavioral management 3) Appreciate hospitalist assistance with medical issues Vital Signs Date Time Temp Pulse Resp B/P (MAP) Pulse Ox O2 Delivery O2 Flow Rate FiO2 10/30/21 08:03 98.0 65 18 98 Room Air 0.00 NUrsing: slept 6.75 hours this morning denies depression and anxiety, denies SI when she went to bed, hard time falling asleep, she could hear staff talking, did not rest well 10/30/21 Patient: can feel numb, not crying over any little thing, and I don't let others run me over, family feel I don't show enough emotions she admits she is wanting to sleep more this morning but is going to try stay awake Summary: Discussed goals of medications; she should feel like herself but be able to have full emotions and not having cycles in mood that include radical changes abruptly. will make some consideration to lower cymbalta, may have numbed her emotions too much, family would comment she was not showing appropriate emotion after but she felt that was better than being too emotional. Lostant I: MDD, rec, severe w/o psychotic features SI rule out bipolar, starting to hear of cycles in her mood, cycles in her patterns, radical changes suddenly in her life Plan: 1) Medications: -continue Cymbalta 90mg PO QHS for mood/pain -continue Trazodone 50mg PO QHS PRN sleep -Continue WellbutrinXL 150mg PO QAM for mood. (Will consider switching to different antidepressant in case of side effects; headache and itching are persisting ). -Continue Vistaril 25mg PO Q6hrs PRN anxiety Abilify increase to 5mg daily and dose in the morning, felt it made her sleep more restless after taking it at 5pm time. 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 She admits that suicidal thinking of the past was rather continuous and her mother would frequently hear about this in their conversations together, while she is not currently suicidal her confidence in it's resolution is not well. Lostant I: Bipolar II F31.81 (cycles in her mood, cycles in her patterns, radical changes suddenly in her life) SI Admitting diagnosis was MDD Plan: 1) Medications: -continue Cymbalta 90mg PO QHS for mood/pain -continue Trazodone 50mg PO QHS PRN sleep -Continue WellbutrinXL 150mg PO QAM for mood. -Continue Vistaril 25mg PO Q6hrs PRN anxiety Abilify increase to 10mg daily for mood stabilization, as of today still appearing overwhelmed, not able to fully problem solve yet, hesitant to make decisions 2) Continue behavioral management 3) Appreciate hospitalist assistance with medical issues Potential discharge Wednesday; She plans to follow up with [facility] outpatient program for therapy and psychiatry She has a PCP, She plans to register with the [facility]'s disability office, Tamiko VU is preparing basic letter of hospital length with diagnosis 11/01/21: Patient presented with a pleasant mood, reports feeling tired but more calm today. Less anxious and depressed. She denies SI today, slept 6.25 hours last night after taking PRN Trazodone. Rated both anxiety and depression 03/10 today. Patient took Abilify 10mg this morning, she took Abilify 5 BID yesterday. She doesn't know if the Abilify 10mg she took this morning is making her feel tired. Will monitor her today for tiredness. If the tiredness persisting will move Abilify at HS. Patient said she likes Abilify it helps her with racing thoughts and depression. She denies SI, HI, and AV hallucinations. She is med and meal compliant, participating in groups and interacting with peers. No concerns today other than tiredness. Her mood has been stable. Possible discharge on Wednesday. Plan: 1) Medications: -continue Cymbalta 90mg PO QHS for mood/pain -continue Trazodone 50mg PO QHS PRN sleep -Continue WellbutrinXL 150mg PO QAM for mood. -Continue Vistaril 25mg PO Q6hrs PRN anxiety Abilify increase to 10mg daily for mood stabilization, as of today still appearing overwhelmed, not able to fully problem solve yet, hesitant to make decisions 2) Continue behavioral management 3) Appreciate hospitalist assistance with medical issues Vital Signs Date Time Temp Pulse Resp B/P (MAP) Pulse Ox O2 Delivery O2 Flow Rate FiO2 11/01/21 09:25 97.9 80 16 98 Room Air 0.00 11/02/21: As per nursing report, patient slept good for 7 hours without sleeping aid. Her and daughter visited her yesterday. She has little more energy today. Eating fair, interacting with peers and participating in groups. Patient presented with a pleasant affect today. Reports she is feeling better. But anxiety is still there, she rated it 3/10. She said she felt with tiredness since afternoon yesterday. She prefers taking Abilify in the morning. Denies feeling depressed or anxious. Denies SI, HI, and AV hallucinations. Reports her appetite has picked up. No med change today. Possible discharge tomorrows. Ordering labs for HbA1XC and lipid panel tomorrow morning. Plan: 1) Medications: -continue Cymbalta 90mg PO QHS for mood/pain -continue Trazodone 50mg PO QHS PRN sleep -Continue WellbutrinXL 150mg PO QAM for mood. -Continue Vistaril 25mg PO Q6hrs PRN anxiety Abilify increase to 10mg daily for mood stabilization, as of today still appearing overwhelmed, not able to fully problem solve yet, hesitant to make decisions 2) Continue behavioral management 3) Appreciate hospitalist assistance with medical issues Potential discharge Wednesday; She plans to follow up with [facility] outpatient program for therapy and psychiatry She has a PCP, She plans to register with the [facility]'s disability office, Tamiko VU is preparing basic letter of hospital length with diagnosis 11/01/21: Patient presented with a pleasant mood, reports feeling tired but more calm today. Less anxious and depressed. She denies SI today, slept 6.25 hours last night after taking PRN Trazodone. Rated both anxiety and depression 1/10 today. Patient took Abilify 10mg this morning, she took Abilify 5 BID yesterday. She doesn't know if the Abilify 10mg she took this morning is making her feel tired. Will monitor her today for tiredness. If the tiredness persisting will move Abilify at HS. Patient said she likes Abilify it helps her with racing thoughts and depression. She denies SI, HI, and AV hallucinations. She is med and meal compliant, participating in groups and interacting with peers. No concerns today other than tiredness. Her mood has been stable. Possible discharge on Wednesday. Plan: 1) Medications: -continue Cymbalta 90mg PO QHS for mood/pain -continue Trazodone 50mg PO QHS PRN sleep -Continue WellbutrinXL 150mg PO QAM for mood. -Continue Vistaril 25mg PO Q6hrs PRN anxiety -Continue Abilify 10mg daily for mood stabilization, as of today still appearing overwhelmed, not able to fully problem solve yet, hesitant to make decisions 2) Continue behavioral management 3) Appreciate hospitalist assistance with medical issues 4) Labs orderes HbA1c and lipid panel Patient History: FH: pancreatic cancer DAUGHTER NIRMALA GOMEZ WOODROW Nov 02, 2021 08:06
[2021-11-02 08:20] VITALS: BP 120/75
--- NOTE | 2021-11-02 08:25 | NUR ---
TELEMED PATIENT MET WITH MD NIRMALA VIA TELEMED, PATIENT VOICES SHE DOES FEEL BETTER, HAS BRIGHT AFFECT, DISCUSSION OF CAROLA, WILL KEEP WILY IN AM. Addendum: 11/02/21 at 1228 by DIANA CarmonaBHU RYAN PLAN FOR DISCHARGE 11/03/21
[2021-11-02] MEDS ORDERED: ABILIFY ONE ×2 (08:41→08:42)
[2021-11-02] MEDS ORDERED: WELLBUTRIN XL PO ONE (08:41)
[2021-11-02] MEDS: ABILIFY PO SCH (08:42)
[2021-11-02] MEDS: WELLBUTRIN XL PO SCH (08:42)
--- NOTE | 2021-11-02 14:59 | NUR ---
P.I.R.P. P. DANGER TO SELF/ALTERATION IN MOOD I. PROVIDE EVERY 15 MINUTE OBSERVATION WITH DOCUMENTATION, PROVIDE SAFE AND SECURE ENVIRONMENT, PROVIDE MEDICATION WITH EDUCATION ON MEDS ORDERED PER MD. PROVIDE TASK ORIENTED GROUP ACTIVITY AND ENCOURAGE PARTICIPATION. MONITOR FOR TRIGGERS FOR MOOD CHANGES. PROVIDE 1:1 INTERVENTION TO ALLOW PATIENT TO EXPRESS FEELINGS. R. PATIENT TOOK ALL MEDS ORDERED, PATIENT VOICES SHE DOES NOT HAVE S/I, REPORTS ANXIETY 3, DEPRESSION 0, REPORTS CONTINUES TO FEEL CALMER. PATIENT VOICED SHE FELS BETTER THIS AM, AFTER TELEMED VISIT WITH NIRMALA, WILL ABILIFY TO REMAIN IN AM. DISCHARGE PLANS FOR WEDNESDAY. SPOUSE CAME TO VISIT WITH PATIENT TODAY, NO CHANGES AFTERWARD. PATIENT VOICED SHE HAS SHARED HER GOALS WITH SPOUSE. P. CONTINUE CURRENT PLAN CARE. DISCHARGE PLANNED FOR PATIENT FOR Wednesday11/03/21 WITH IOP
--- NOTE | 2021-11-02 18:36 | NUR ---
LEVOTHYROXINE CONTACTED DR MARCUS DUE TO PATIENT REQUESTED LEVOTHYROXINE 75 MCG X 8 TABS FOR IN AM. PATIENT TAKES MED ONLY 1 X WEEKLY FOR INA THYROID DISEASE. ORDER RECEIVED FOR SAME.
[2021-11-02 20:16] VITALS: BP 125/84
[2021-11-02] MEDS ORDERED: CYMBALTA ONE (21:14)
[2021-11-02] MEDS ORDERED: SYNTHROID ONE (21:15)
[2021-11-02] MEDS: CYMBALTA PO SCH (21:16)
--- NOTE | 2021-11-03 04:12 | NUR ---
pirp- P- ALTERATION IN MOOD AND DTS I- PROVIDE SAFE AND SUPPORTIVE ENVIRONMENT,PROVIDE MEDICATION ORDERED AND OBSERVE BEHAVIORS. PROVIDE 1:1 INTERACTION ALLOWING PT. TO EXPRESS THOUGHTS AND FEELINGS. R- PT. RATED DEPRESSION 1 AND ANXIETY 2 AND DENIES SI TONIGHT. PLEASANT AFFECT. ATTENDED GROUP,ATE SNACKS INITIATED INTERACTION AND PARTICIPATED IN GROUP ACTIVITIES. TOOK MEDICATION ORDERED. PT. STATED SHE FEELS BETTER AND TALKED ABOUT HER FUTURE PLANS OF GETTING HER MASTER'S DEGREE. STATES SHE IS LOOKING FORWARD TO GOING HOME TOMORROW. RESTING IN BED WITH EYES CLOSED AT THIS TIME. P- CONTINUE WITH PLAN TO DISCHARGE WEDNESDAY.
[2021-11-03] MEDS ORDERED: SYNTHROID PO ONE ×2 (06:30→08:00)
[2021-11-03] MEDS ORDERED: SYNTHROID ONE (07:27)
[2021-11-03] MEDS ORDERED: WELLBUTRIN XL PO ONE (08:22)
[2021-11-03] MEDS ORDERED: ABILIFY ONE (08:22)
[2021-11-03] MEDS: WELLBUTRIN XL PO SCH (08:22)
[2021-11-03] MEDS: ABILIFY PO SCH (08:23)
[2021-11-03 08:34] VITALS: BP 128/89
--- NOTE | 2021-11-03 09:45 | NUR ---
TELEMED PATIENT SEEN BY JOÃO YUSUF VIA TELEMED. ORDERS TO DC HOME TODAY.
--- NOTE | 2021-11-03 09:50 | PRM.PN ---
Mood: Pleasant Sleep: 7.25 hours Appetite: Good Suidical thoughts: Denies Homicidal thoughts: Denies Recent stressors: None reported Family support: Aggressive Behavior: None Ability to Perform ADL'sc: Good Psychotic sympstoms: Denies AV hallicinations, paranoia, and delusions Manic Symptoms: None present Living situation: Lives with and kids Illicit Drug usec: Denies Alcoholo use: Denies Tobacco use: Denies Anxity Symptoms: Anxious to go home Anger/Irritablility: DEnies Muscle Strength & Tone: WNL Gait & Station: Normal stance/post/gait Appearance: Well groomed/hygience Mood & Affect: Euthymic/appr/congruent Orientation: Fully oriented per interv Attention/Concentration: Good attention, Good concentration Speech: Reg rate/vol/rhyth/prosod Judgement/Insight: Good judgement, Good insight Thought Process: Linear/goal directed Language: Albanian Thought content/Abnormal/Psych: None/normal Fund of Knowledge: WNL Associations: WNL/Normal Associations Memory (recent and remote): Gross int/not form assess Constitutional: None Neurological: None Psychiatric: None [place] I: MDD sev rec w/o psychotic features Assessment/Plan Assessment/Plan Assessment/Plan 45 yo F, hx of depression, admitted to [facility] for worsening mood and SI with plan in the context of medical issues and psychosocial stressors. Assessment: MDD, rec, severe w/o psychotic features- Managed by [facility] [[email or web address] providers # History of Leona thyroiditis- she took 8 pills of 75 mcg levothyroxine yes terday and she is good for about a week. # Mild hypokalemia of 3.4- potassium chloride 20 M EQ p.o. daily for 3 days. can repeat CMP after that. 45 yo F, hx of depression, admitted to [facility] for worsening mood and SI with plan in the context of medical issues and psychosocial stressors. Patient's presentation is likely impacted by her Leona's, but we discussed possible tr eatment options for her depression. Reviewed R/B/BSEs of medications. PVU, agrees with plan. [place] I: MDD, rec, severe w/o psychotic features Plan: 1) Medications: -continue Cymbalta 90mg PO QHS for mood/pain -continue Trazodone 50mg PO QHS PRN sleep -start WellbutrinXL 150mg PO QAM for mood -start Vistaril 25mg PO Q6hrs PRN anxiety 2) Continue behavioral management 3) Appreciate hospitalist assistance with medical issues 10/28/21: The patient was seen by JENNIFER Sheridan face to face via televideo conference for a f/u psychiatric evaluation at [facility] unit. As per nursing, patient did fair during day time yesterday and last night. She participated in groups but keeping limited interaction with peers. Patient's visited her yesterday. Caity is attending to ADLs, she took a shower yesterday, patient has a tendency to pay less attention to personal hygiene when she goes through depressive episode. She is eating fair, she said she doesn't like the food over here, she has a lot of food restriction due to Leona's. Nursing will provide educational resource for Leona's diet. Patient slept fo r 6.25 hours last night after taking Trazodone. Caity was pleasant and cooperative during the assessment. She said she was t earful yesterday because she really wanted to go home. She reports feeling a little bit better today. Patient received the first dose of Wellbutrin yesterday. She mentioned of having mild itching on both arms and headache. She refused to take PRN Vistaril when offered. Patient said she will monitor herself and see if its from Wellbutrin. Advised to take Tylenol for headache. If he adache persists or getting worse with further administration of Wellbutrin will make necessary med adjustment. Patient rated her depression 2/10 and anxiety 1/10 today. Motivation and energy are still on lower side. She denies SI, HI, and AV hallucinations. No med changes today. Will continue f/u on patient's mood and mediation tolerance. [place] I: MDD, rec, severe w/o psychotic features Plan: 1) Medications: -continue Cymbalta 90mg PO QHS for mood/pain -continue Trazodone 50mg PO QHS PRN sleep -Continue WellbutrinXL 150mg PO QAM for mood. (Will consider switching to different antidepressant in case of side effects; headache and itching are persisting ). -Continue Vistaril 25mg PO Q6hrs PRN anxiety 2) Continue behavioral management 3) Appreciate hospitalist assistance with medical issues Vital Signs Date Time Temp Pulse Resp B/P (MAP) Pulse Ox O2 Delivery O2 Flow Rate FiO2 10/28/21 19:43 98.4 75 18 98 Room Air 0.00 Current Medications Medications (Trade) Dose Ordered Sig/Esthela PRN Reason Start Time Stop Time Status Last Admin Acetaminophen (Tylenol) 650 mg Q6H PRN PAIN 4-8 10/27/21 20:10 11/27/21 00:00 10/28/21 19:36 Acetaminophen/ Butalbital/ Caffeine (Fioricet) 2 each Q6 PRN MIGRAINE PAIN 10/28/21 21:00 11/27/21 20:59 Bupropion HCl (Wellbutrin Xl) 150 mg DAILY 10/28/21 09:00 11/27/21 08:59 10/28/21 08:56 Duloxetine HCl (Cymbalta) 90 mg HS 10/27/21 21:00 11/26/21 20:59 10/28/21 20:42 Hydroxyzine HCl (Atarax) 25 mg Q6HR PRN anxiety 10/27/21 11:00 11/26/21 10:59 Potassium Chloride (Klor-Con 10) 20 meq DAILY 10/28/21 09:00 10/31/21 11:00 10/28/21 08:56 Trazodone HCl (Desyrel) 50 mg HS PRN SLEEP 10/27/21 05:00 11/27/21 00:00 10/28/21 20:42 Vital Signs Date Time Temp Pulse Resp B/P (MAP) Pulse Ox O2 Delivery O2 Flow Rate FiO2 10/29/21 09:06 98.3 87 18 98 Room Air 0.00 10/29/21 Nursing report: slept 7.75 hours rated depression a 1, denies si, rated anxiety a zero participated in group, out of her room all day after nursing encouragement she reports feeling better, she had previously avoided eye contact able to participate in games and laugh her plans to visit tonight itchiness? not present she reports, she will suddenly change things, like her house, put it up for sale, quit her job, stopped her masters work Patient: situation change me last time depressed, told me resign form my job, stay with my mom, I stayed there 7 months, face was glowing, then we moved down there, I did not follow up through suicide, I figured I just need to go someplace to get me figured up I don't know my real dad, admits this time was real I am very disorganized, Summary: mild hypomania, smily, appears to have gained great energy today, affect mildly in congruent, talking but looking opposite direction, talks of suicidal thought and no sad affect [place] I: MDD, rec, severe w/o psychotic features SI rule out bipolar, starting to hear of cycles in her mood, Plan: 1) Medications: -continue Cymbalta 90mg PO QHS for mood/pain -continue Trazodone 50mg PO QHS PRN sleep -Continue WellbutrinXL 150mg PO QAM for mood. (Will consider switching to different antidepressant in case of side effects; headache and itching are persisting ). -Continue Vistaril 25mg PO Q6hrs PRN anxiety ADD Abilify 2mg po daily; discussed target dose more likely 10mg daily for mood stabilizer, if no akathisia tonight; likely to increase tomorrow. discussed benefits and side effects 2) Continue behavioral management 3) Appreciate hospitalist assistance with medical issues Vital Signs Date Time Temp Pulse Resp B/P (MAP) Pulse Ox O2 Delivery O2 Flow Rate FiO2 10/30/21 08:03 98.0 65 18 98 Room Air 0.00 NUrsing: slept 6.75 hours this morning denies depression and anxiety, denies SI when she went to bed, hard time falling asleep, she could hear staff talking, did not rest well 10/30/21 Patient: can feel numb, not crying over any little thing, and I don't let others run me over, family feel I don't show enough emotions she admits she is wanting to sleep more this morning but is going to try stay awake Summary: Discussed goals of medications; she should feel like herself but be able to have full emotions and not having cycles in mood that include radical changes abruptly. will make some consideration to lower cymbalta, may have numbed her emotions too much, family would comment she was not showing appropriate emotion after but she felt that was better than being too emotional. [place] I: MDD, rec, severe w/o psychotic features SI rule out bipolar, starting to hear of cycles in her mood, cycles in her patterns, radical changes suddenly in her life Plan: 1) Medications: -continue Cymbalta 90mg PO QHS for mood/pain -continue Trazodone 50mg PO QHS PRN sleep -Continue WellbutrinXL 150mg PO QAM for mood. (Will consider switching to different antidepressant in case of side effects; headache and itching are persisting ). -Continue Vistaril 25mg PO Q6hrs PRN anxiety Abilify increase to 5mg daily and dose in the morning, felt it made her sleep more restless after taking it at 5pm time. 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 She admits that suicidal thinking of the past was rather continuous and her mother would frequently hear about this in their conversations together, while she is not currently suicidal her confidence in it's resolution is not well. [place] I: Bipolar II F31.81 (cycles in her mood, cycles in her patterns, radical changes suddenly in her life) SI Admitting diagnosis was MDD Plan: 1) Medications: -continue Cymbalta 90mg PO QHS for mood/pain -continue Trazodone 50mg PO QHS PRN sleep -Continue WellbutrinXL 150mg PO QAM for mood. -Continue Vistaril 25mg PO Q6hrs PRN anxiety Abilify increase to 10mg daily for mood stabilization, as of today still appearing overwhelmed, not able to fully problem solve yet, hesitant to make decisions 2) Continue behavioral management 3) Appreciate hospitalist assistance with medical issues Potential discharge Wednesday; She plans to follow up with [place] outpatient program for therapy and psychiatry She has a PCP, She plans to register with the [facility]'s disability office, Tamiko VU is preparing basic letter of hospital length with diagnosis 11/01/21: Patient presented with a pleasant mood, reports feeling tired but more calm today. Less anxious and depressed. She denies SI today, slept 6.25 hours last night after taking PRN Trazodone. Rated both anxiety and depression 03/10 today. Patient took Abilify 10mg this morning, she took Abilify 5 BID yesterday. She doesn't know if the Abilify 10mg she took this morning is making her feel tired. Will monitor her today for tiredness. If the tiredness persisting will move Abilify at HS. Patient said she likes Abilify it helps her with racing thoughts and depression. She denies SI, HI, and AV hallucinations. She is med and meal compliant, participating in groups and interacting with peers. No concerns today other than tiredness. Her mood has been stable. Possible discharge on Wednesday. Plan: 1) Medications: -continue Cymbalta 90mg PO QHS for mood/pain -continue Trazodone 50mg PO QHS PRN sleep -Continue WellbutrinXL 150mg PO QAM for mood. -Continue Vistaril 25mg PO Q6hrs PRN anxiety Abilify increase to 10mg daily for mood stabilization, as of today still appearing overwhelmed, not able to fully problem solve yet, hesitant to make decisions 2) Continue behavioral management 3) Appreciate hospitalist assistance with medical issues Vital Signs Date Time Temp Pulse Resp B/P (MAP) Pulse Ox O2 Delivery O2 Flow Rate FiO2 11/01/21 09:25 97.9 80 16 98 Room Air 0.00 11/02/21: As per nursing report, patient slept good for 7 hours without sleeping aid. Her and daughter visited her yesterday. She has little more energy today. Eating fair, interacting with peers and participating in groups. Patient presented with a pleasant affect today. Reports she is feeling better. But anxiety is still there, she rated it 3/10. She said she felt with tiredness since afternoon yesterday. She prefers taking Abilify in the morning. Denies feeling depressed or anxious. Denies SI, HI, and AV hallucinations. Reports her appetite has picked up. No med change today. Possible discharge tomorrows. Ordering labs for HbA1XC and lipid panel tomorrow morning. Plan: 1) Medications: -continue Cymbalta 90mg PO QHS for mood/pain -continue Trazodone 50mg PO QHS PRN sleep -Continue WellbutrinXL 150mg PO QAM for mood. -Continue Vistaril 25mg PO Q6hrs PRN anxiety Abilify increase to 10mg daily for mood stabilization, as of today still appearing overwhelmed, not able to fully problem solve yet, hesitant to make decisions 2) Continue behavioral management 3) Appreciate hospitalist assistance with medical issues Potential discharge Wednesday; She plans to follow up with [place] outpatient program for therapy and psychiatry She has a PCP, She plans to register with the [facility]'s disability office, Tamiko VU is preparing basic letter of hospital length with diagnosis 11/01/21: Patient presented with a pleasant mood, reports feeling tired but more calm today. Less anxious and depressed. She denies SI today, slept 6.25 hours last night after taking PRN Trazodone. Rated both anxiety and depression 1/10 today. Patient took Abilify 10mg this morning, she took Abilify 5 BID yesterday. She doesn't know if the Abilify 10mg she took this morning is making her feel tired. Will monitor her today for tiredness. If the tiredness persisting will move Abilify at HS. Patient said she likes Abilify it helps her with racing thoughts and depression. She denies SI, HI, and AV hallucinations. She is med and meal compliant, participating in groups and interacting with peers. No concerns today other than tiredness. Her mood has been stable. Possible discharge on Wednesday. Plan: 1) Medications: -continue Cymbalta 90mg PO QHS for mood/pain -continue Trazodone 50mg PO QHS PRN sleep -Continue WellbutrinXL 150mg PO QAM for mood. -Continue Vistaril 25mg PO Q6hrs PRN anxiety -Continue Abilify 10mg daily for mood stabilization, as of today still appearing overwhelmed, not able to fully problem solve yet, hesitant to make decisions 2) Continue behavioral management 3) Appreciate hospitalist assistance with medical issues 4) Labs orderes HbA1c and lipid panel 11/03/21: Patient presented with brighter affect today. She had a good sleep last night, slept rfor7.25 hours. Denied feeling depressed or anxious today. Mood is "stable and good". She denied having any thoughts of hurting herself. Denies AV hallucination, paranoia and delusional thoughts. The patient has improved a lot since she admitted. She has learnt better coping skills that she is confident enough in using to deal with stressful situation. She had SI due to psychosocial stressors for admission mainly her health issues. Patient's thyroid level is WNL at present, she is on medication and she will FU with her [employer] and PC D Dr. Watson Mcleod. She is interested in F/U with IOP and is looking forward to it. Her is reportedly very supportive and they have better relationship now. Patient voiced readiness for discharge today. Her will give her ride. Labs reviewed, Cholesterol - 262 and HbA1C- 5.2. Plan: Discharge Medications: - Cymbalta 90mg PO QHS for mood/pain - Trazodone 50mg PO QHS PRN sleep - WellbutrinXL 150mg PO QAM for mood. - Vistaril 25mg PO BID PRN anxiety -Abilify 10mg daily for mood stabilization F/U with PCP Dr. Chaudhari on 11/17/21 at 10AM F/U with [employer] Patient History: FH: pancreatic cancer DAUGHTER NIRMALA GOMEZ HISTORICAL SITE GUIDE Nov 03, 2021 09:50
[2021-11-03] MEDS ORDERED: TRAZ-163 PO (10:31)
[2021-11-03] MEDS ORDERED: BUPR150T23 PO (10:31)
[2021-11-03] MEDS ORDERED: DULO30CA2 PO (10:31)
[2021-11-03] MEDS ORDERED: ARIP5TAB13 PO (10:31)
[2021-11-03] MEDS ORDERED: HYDR25TA PO (10:31)
[2021-11-03 10:50] VITALS: BP 128/89
--- NOTE | 2021-11-03 11:47 | NUR ---
DISCHARGE DISCHARGE INSTRUCTIONS GIVEN WRITTEN AND VERBALLY TO PATIENT ON NEW PRESCRIPTIONS, DEPRESSION, SUICIDAL IDEATION, THYROID DISEASE. SAFETY PLAN COMPLETE AND COPY PROVIDED TO PATIENT. DISCHARGE AFTERCARE PLAN COMPLETE AND COPY PROVIDED TO PATIENT. ANSWERED ALL QUESTION AND VERBALIZED UNDERSTANDING.
--- NOTE | 2021-11-03 11:50 | NUR ---
DISMISSED DISMISSED AMBULATORY IN STABLE CONDITION ACCOMPANIED BY THE TRUCK MECHANIC APPRENTICE.
--- NOTE | 2021-11-03 12:00 | PRM.DC ---
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 She reports that she was very active before her diagnosis, but since then, despite treatment, she has felt like her mood/energy have not been what they used to be. She feels like her depression has been worsening, low energy/motivation, anhedonia, poor concentration, poor sleep, poor appetite (lost 5-10lbs in the last 2 months). 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 She started having SI with plan to shoot herself with a shotgun -- made preparations, designating who would get her jewelry, leaving notes for her . No manic symptoms, no HI. No psychotic symptoms. Some anxiety related to stressors. No OCD/PTSD symptoms. Patient History: FH: pancreatic cancer DAUGHTER Exam Vital Signs Vital Signs Date Time Temp Pulse Resp B/P (MAP) Pulse Ox O2 Delivery O2 Flow Rate FiO2 11/03/21 10:50 84 18 100 Room Air 11/03/21 08:34 98.2 0.00 10/27/21 03:00 133/87 (102) 21 General Appearance: Alert, Oriented X3, Cooperative, No acute distress Psych/Mental Status: Mental status NL VTE VTE Risk Total Score: 4 VTE Risk Score VTE Risk: Score 0-1 = Low Risk (Aggressive mobilization; early ambulation; no VTE prophylaxis required) Score 2: Moderate Risk (Intermittent/Pneumatic Compression Device OR Lovenox/Heparin/Coumadin) Score 3-4: High Risk (Intermittent/Pneumatic Compression Device AND Lovenox/Heparin/Coumadin) Score > or =5: Highest Risk (Intermittent/Pneumatic Compression Device AND Lovenox/Heparin/Coumadin) Antico:Hep/LMWH/Coum/Xarelto: No Mechanical device ordered: No Objective Vitals and I/O Vital Sign - Last 24 Hours 11/02/21 11/03/21 11/03/21 20:16 08:34 10:50 Temp 97.7 98.2 Pulse 75 84 84 Resp 18 18 18 Pulse Ox 99 100 100 O2 Delivery Room Air Room Air Room Air O2 Flow Rate 0.00 0.00 Intake and Output 11/03/21 07:00 Intake Total 1960 ml Balance 1960 ml General: Alert, Oriented X3, Cooperative, No acute distress HEENT: Atraumatic, PERRLA, EOMI, Mucous membr. moist/pink Lungs: Clear to auscultation Heart: Normal S1, Normal S2 Abdomen: Normal bowel sounds, Soft Extremities: No clubbing, No cyanosis, No edema Neuro: Normal gait, Normal speech, Strength at 5/5 X4 ext, Normal tone Psych/Mental Status: Mental status NL All Results(Lab/Rad) Laboratory Tests Test 11/03/21 07:18 Hemoglobin A1c 5.2 % Triglycerides Level 69 mg/dL Cholesterol Level 262 mg/dL LDL Cholesterol, Calculated 166.2 VLDL Cholesterol, Calculated 13.8 HDL Cholesterol 82 mg/dL Cholesterol Ratio (LDL/HDL) 2.0 Cholesterol/HDL Ratio [id number] Current Medications Medications (Trade) Dose Ordered Sig/Esthela Route PRN Reason Start Time Stop Time Status Last Admin Dose Admin Duloxetine HCl (Cymbalta) 90 mg HS PO 10/27/21 02:50 10/27/21 03:47 DC Duloxetine HCl (Cymbalta) 90 mg HS PO 10/27/21 21:00 10/27/21 03:49 DC Duloxetine HCl (Cymbalta) 90 mg HS PO 10/27/21 21:00 11/26/21 20:59 11/02/21 21:16 Duloxetine HCl (Cymbalta) 90 mg OT ONCE PO 10/27/21 04:00 10/27/21 04:01 DC 10/27/21 03:56 Trazodone HCl (Desyrel) 50 mg HS PRN PO SLEEP 10/27/21 05:00 11/27/21 00:00 10/31/21 22:11 Bupropion HCl (Wellbutrin Xl) 150 mg DAILY PO 10/28/21 09:00 11/27/21 08:59 11/03/21 08:22 Hydroxyzine HCl (Atarax) 25 mg Q6HR PRN PO anxiety 10/27/21 11:00 11/26/21 10:59 Potassium Chloride (Klor-Con 10) 20 meq DAILY PO 10/28/21 09:00 10/31/21 11:00 DC 10/31/21 10:21 Duloxetine HCl (Cymbalta) 30 mg STK-MED ONCE .ROUTE 10/27/21 20:09 10/27/21 20:09 DC Acetaminophen (Tylenol) 325 mg STK-MED ONCE .ROUTE 10/27/21 20:12 10/27/21 20:13 DC Acetaminophen (Tylenol) 650 mg Q6H PRN PO PAIN 4-8 10/27/21 20:10 11/27/21 00:00 11/01/21 21:43 Trazodone HCl (Desyrel) 50 mg STK-MED ONCE .ROUTE 10/27/21 23:40 10/27/21 23:40 DC Bupropion HCl (Wellbutrin Xl) 150 mg STK-MED ONCE PO 10/28/21 08:49 10/28/21 08:49 DC Potassium Chloride (Klor-Con 10) 10 meq STK-MED ONCE PO 10/28/21 08:54 10/28/21 08:54 DC Acetaminophen (Tylenol) 325 mg STK-MED ONCE .ROUTE 10/28/21 09:15 10/28/21 09:15 DC Acetaminophen (Tylenol) 325 mg STK-MED ONCE .ROUTE 10/28/21 19:36 10/28/21 19:36 DC Trazodone HCl (Desyrel) 50 mg STK-MED ONCE .ROUTE 10/28/21 20:41 10/28/21 20:42 DC Duloxetine HCl (Cymbalta) 30 mg STK-MED ONCE .ROUTE 10/28/21 20:42 10/28/21 20:42 DC Acetaminophen/ Butalbital/ Caffeine (Fioricet) 2 each Q6 PRN PO MIGRAINE PAIN 10/28/21 21:00 10/29/21 14:49 DC Prochlorperazine Edisylate (Compazine) 10 mg OT ONCE IM 10/28/21 21:00 10/28/21 21:01 DC Bupropion HCl (Wellbutrin Xl) 150 mg STK-MED ONCE PO 10/29/21 09:21 10/29/21 09:22 DC Potassium Chloride (Klor-Con 10) 10 meq STK-MED ONCE PO 10/29/21 09:22 10/29/21 09:22 DC Butalbital/ Aspirin/Caffeine (Fiorinal 50-325-40 Mg Capsule) 2 each Q6 PRN PO MIGRAINE PAIN 10/29/21 15:00 11/28/21 14:59 Aripiprazole (Abilify) 2 mg DAILY PO 10/29/21 17:00 10/30/21 08:30 DC 10/29/21 17:06 Trazodone HCl (Desyrel) 50 mg STK-MED ONCE .ROUTE 10/29/21 20:55 10/29/21 20:55 DC Duloxetine HCl (Cymbalta) 30 mg STK-MED ONCE .ROUTE 10/29/21 20:55 10/29/21 20:56 DC Aripiprazole (Abilify) 5 mg DAILY PO 10/30/21 09:00 10/30/21 08:49 DC 10/30/21 08:33 Aripiprazole (Abilify) 5 mg STK-MED ONCE .ROUTE 10/30/21 08:32 10/30/21 08:33 DC Bupropion HCl (Wellbutrin Xl) 150 mg STK-MED ONCE PO 10/30/21 08:32 10/30/21 08:33 DC Potassium Chloride (Klor-Con 10) 10 meq STK-MED ONCE PO 10/30/21 08:33 10/30/21 08:33 DC Aripiprazole (Abilify) 5 mg DAILY PO 10/30/21 09:00 10/31/21 15:41 DC 10/31/21 09:01 Acetaminophen (Tylenol) 325 mg STK-MED ONCE .ROUTE 10/30/21 09:42 10/30/21 09:42 DC Duloxetine HCl (Cymbalta) 30 mg STK-MED ONCE .ROUTE 10/30/21 20:53 10/30/21 20:53 DC Trazodone HCl (Desyrel) 50 mg STK-MED ONCE .ROUTE 10/30/21 23:59 10/30/21 23:59 DC Aripiprazole (Abilify) 5 mg STK-MED ONCE .ROUTE 10/31/21 09:00 10/31/21 09:01 DC Bupropion HCl (Wellbutrin Xl) 150 mg STK-MED ONCE PO 10/31/21 09:00 10/31/21 09:01 DC Potassium Chloride (Klor-Con 10) 10 meq STK-MED ONCE PO 10/31/21 10:19 10/31/21 10:19 DC Aripiprazole (Abilify) 5 mg OT PO 10/31/21 16:00 10/31/21 18:32 DC 10/31/21 15:57 Aripiprazole (Abilify) 10 mg DAILY PO 11/01/21 09:00 12/01/21 08:59 11/03/21 08:23 Aripiprazole (Abilify) 5 mg STK-MED ONCE .ROUTE 10/31/21 15:56 11/01/21 12:39 DC Duloxetine HCl (Cymbalta) 30 mg STK-MED ONCE .ROUTE 10/31/21 20:09 11/01/21 12:40 DC Trazodone HCl (Desyrel) 50 mg STK-MED ONCE .ROUTE 10/31/21 22:11 11/01/21 12:41 DC Duloxetine HCl (Cymbalta) 30 mg STK-MED ONCE .ROUTE 11/01/21 20:46 11/01/21 20:47 DC Acetaminophen (Tylenol) 325 mg STK-MED ONCE .ROUTE 11/01/21 21:42 11/01/21 21:42 DC Bupropion HCl (Wellbutrin Xl) 150 mg STK-MED ONCE PO 11/02/21 08:41 11/02/21 08:41 DC Aripiprazole (Abilify) 10 mg STK-MED ONCE .ROUTE 11/02/21 08:41 11/02/21 08:42 DC Aripiprazole (Abilify) 5 mg STK-MED ONCE .ROUTE 11/02/21 08:42 11/02/21 08:42 DC Levothyroxine Sodium (Synthroid) 600 mcg ACB ONCE PO 11/03/21 06:30 11/03/21 07:24 DC Duloxetine HCl (Cymbalta) 30 mg STK-MED ONCE .ROUTE 11/02/21 21:14 11/02/21 21:14 DC Levothyroxine Sodium (Synthroid) 75 mcg ACB ONCE PO 11/04/21 06:30 11/03/21 07:34 DC Levothyroxine Sodium (Synthroid) 75 mcg STK-MED ONCE .ROUTE 11/02/21 21:15 11/03/21 07:24 DC Levothyroxine Sodium (Synthroid) 75 mcg STK-MED ONCE .ROUTE 11/03/21 07:27 11/03/21 07:34 DC Levothyroxine Sodium (Synthroid) 600 mcg ACB ONCE PO 11/03/21 08:00 11/03/21 09:11 DC 11/03/21 08:23 Aripiprazole (Abilify) 5 mg STK-MED ONCE .ROUTE 11/03/21 08:22 11/03/21 08:22 DC Bupropion HCl (Wellbutrin Xl) 150 mg STK-MED ONCE PO 11/03/21 08:22 11/03/21 08:22 DC Levothyroxine Sodium (Synthroid) 600 mcg ACB PO 11/04/21 06:30 12/03/21 09:10 Medication Reconciliation Scheduled Aripiprazole (Abilify), 10 MG PO DAILY Bupropion Hcl (Bupropion Xl), 150 MG PO DAILY Duloxetine Hcl (Cymbalta), 90 MG PO HS Scheduled PRN Hydroxyzine Hcl (Hydroxyzine Hcl), 25 MG PO PRN PRN for anxiety Trazodone Hcl (Trazodone Hcl), 50 MG PO HS PRN for SLEEP Plan Assessment Patient presented with brighter affect today. She had a good sleep last night, slept for 7.25 hours. Denied feeling depressed or anxious today. Mood is "stable and good". She denied having any thoughts of hurting herself. Denies AV hallucination, paranoia and delusional thoughts. The patient has improved a lot since she admitted. She tolerated new atypical antipsychotic medication-Abilify started for mood. The medication titration up to 10mg and with good prognosis. She has learnt better coping skills that she is confident enough in using to deal with stressful situation. She had SI due to psychosocial stressors for admission mainly her health issues. Patient's thyroid level is WNL at present, she is on medication and she will FU with her welfare project manager and PCD Dr. Watson Mcleod. She is interested in F/U with IOP and is looking forward to it. Her is reportedly very supportive and they have better relationship now. Patient voiced readiness for discharge today. Her will give her ride. Labs reviewed, Cholesterol - 262 and HbA1C- 5.2. Plan My Orders - NIRMALA GOMEZ APRN Procedure Category Date Status Time Discharge DISCHARGE 11/03/21 Transmitted 10:23 Plan: Discharge Medications: - Cymbalta 90mg PO QHS for mood/pain - Trazodone 50mg PO QHS PRN sleep - WellbutrinXL 150mg PO QAM for mood. - Vistaril 25mg PO BID PRN anxiety -Abilify 10mg daily for mood stabilization F/U with PCP Dr. Chaudhari on 11/17/21 at 10AM F/U with welfare project manager NIRMALA GOMEZ APRN Nov 03, 2021 12:00
[2021-11-04] MEDS ORDERED: SYNTHROID PO ONE (06:30)
[2021-11-04] MEDS ORDERED: SYNTHROID PO SCH (06:30)
== END 2021-11-03 11:50 | disposition home or self-care (01) | DRG 885 ==
LOC: ER 23:22 → EEVIPCON 10-27 01:58 → GP 10-27 01:58
PROVIDERS: ADMIT Psychiatry & Neurology Psychiatry; ATTEND Psychiatry & Neurology Psychiatry
DX: F31.81 Bipolar II disorder (principal); R45.851 Suicidal ideations; E06.3 Autoimmune thyroiditis; E87.6 Hypokalemia; F41.9 Anxiety disorder, unspecified; E07.9 Disorder of thyroid, unspecified; Z20.822 Contact with and (suspected) exposure to COVID-19; Z90.711 Acquired absence of uterus with remaining cervical stump; Z79.899 Other long term (current) drug therapy
CPT/HCPCS: 36415; 80053; 80061; 80299; 80307; 81003; 82077; 82306; 82550; 83036; 84439; 84443; 84703; 85025; 86592; 87426; 93005; 97150; 97165; 99285; G0378; J3490; J8499